=== PATIENT | female | born 1950 | race Two or more races ===

== ENCOUNTER 2023-01-06 17:41 | Inpatient (IN) | payer MEDICARE, OTHER ==
[~2023-01-06] VITALS: Ht 160 cm; Wt 79.3 kg
[2023-01-06 23:11] LABS: Basophils # (auto) 0.2 10 ^3/uL (0-0.2); Basophils % (auto) 1.4 % (0.0-2.0); Eosinophils # (auto) 0.4 10 ^3/uL (0-0.8); Eosinophils % (auto) 3.1 % (0.0-7.0); Hematocrit 45.1 % (36.0-46.0); Lymphocytes # (auto) 2.6 10 ^3/uL (0.4-5.4); Lymphocytes % (auto) 19.7 % (10.0-50.0); Mean Corpuscular Hemoglobin 29.5 pg (28.0-32.0); Mean Corpuscular Hgb Conc. 33.3 g/dL (32.0-36.0); Mean Corpuscular Volume 88.6 fL (80.0-100.0); Monocytes # (auto) 0.7 10 ^3/uL (0-1.3); Monocytes % (auto) 5.6 % (0.0-12.0); Neutrophils # (auto) 9.3 10 ^3/uL (1.6-8.6); Neutrophils % (auto) 70.2 % (37.0-80.0); Nucleated Red Blood Cells % 0.1 %; Red Blood Cells 5.09 10^6/uL (4.0-5.20); Red Cell Distribution Width 13.9 % (11.8-14.3); White Blood Cell 13.3 10^3/uL (4.4-10.8)
[2023-01-06] MEDS ORDERED: DEXTROSE (50%) 50ML SYRG IV PRN (23:15)
[2023-01-06] MEDS ORDERED: ONDANSETRON HCL 4 MG/2 ML VIAL IV PRN (23:15)
[2023-01-06] MEDS ORDERED: ACETAMINOPHEN 325 MG TAB PO PRN (23:15)
[2023-01-06] MEDS ORDERED: MORPHINE SULFATE INJ 2 MG/ml SYRG IV PRN ×2 (23:15)
[2023-01-06] MEDS ORDERED: NITROGLYCERIN 0.4 MG SL TAB SL PRN (23:15)
[2023-01-06] MEDS ORDERED: DOCUSATE SOD 100 MG CAP PO PRN (23:15)
[2023-01-06 23:25] LABS: Calcium 9.3 mg/dL (8.5-10.1); Potassium 3.5 mmol/L (3.5-5.1)
[2023-01-06 23:28] LABS: BUN/Creatinine Ratio 22.5 (10.0-20.0); Bilirubin, Total 0.7 mg/dL (0.2-1.0); INR 0.98 (0.9-1.15); Partial Thromboplastin Time 26.3 SEC (24.5-34.5); Total Protein 8.3 g/dL (6.4-8.2)
[2023-01-06] MEDS ORDERED: hydrALAZINE HCL 20 MG/ML VL IV PRN (23:30)
[2023-01-06] MEDS ORDERED: amLODIPine BESYLATE 5 MG TAB PO ONE (23:30)
[2023-01-07] VITALS: PULSE 86; RESP 16; O2SAT 94
[2023-01-07] MEDS: HYDROcodone-ACET 5/325MG TAB PO PRN ×2 (00:09→05:11)
[2023-01-07] MEDS: SODIUM CHLORIDE 0.9% 1,000 ML IV SCH ×2 (01:41→18:46)
[2023-01-07 03:22] LABS: Urine Bacteria MOD /hpf (None Seen); Urine Blood Negative /uL (Negative); Urine Specific Gravity 1.011 (1.001-1.035); Urine WBC 11 /hpf (0 - 5)
[2023-01-07 05:35] LABS: Basophils # (auto) 0.1 10 ^3/uL (0-0.2); Basophils % (auto) 0.6 % (0.0-2.0); Eosinophils # (auto) 0.3 10 ^3/uL (0-0.8); Eosinophils % (auto) 2.7 % (0.0-7.0); Hematocrit 40.1 % (36.0-46.0); Hemoglobin 13.4 g/dL (12.2-16.2); Lymphocytes # (auto) 2.1 10 ^3/uL (0.4-5.4); Lymphocytes % (auto) 17.7 % (10.0-50.0); Mean Corpuscular Hemoglobin 29.6 pg (28.0-32.0); Mean Corpuscular Hgb Conc. 33.5 g/dL (32.0-36.0); Mean Corpuscular Volume 88.5 fL (80.0-100.0); Monocytes # (auto) 0.8 10 ^3/uL (0-1.3); Monocytes % (auto) 6.5 % (0.0-12.0); Neutrophils # (auto) 8.5 10 ^3/uL (1.6-8.6); Neutrophils % (auto) 72.5 % (37.0-80.0); Nucleated Red Blood Cells % 0.1 %; Red Blood Cells 4.53 10^6/uL (4.0-5.20); Red Cell Distribution Width 13.8 % (11.8-14.3); White Blood Cell 11.7 10^3/uL (4.4-10.8)
[2023-01-07 05:50] LABS: Albumin 3.4 g/dL (3.4-5.0); Calcium 8.8 mg/dL (8.5-10.1); Potassium 3.3 mmol/L (3.5-5.1)
[2023-01-07 05:54] LABS: BUN/Creatinine Ratio 22.2 (10.0-20.0); Bilirubin, Total 0.7 mg/dL (0.2-1.0); Total Protein 7.3 g/dL (6.4-8.2)
[2023-01-07] MEDS: ACCU-CHEK COMFORT CURVE STRIP VI SCH ×4 (06:42→21:55)
[2023-01-07] MEDS: InsuLIN REG 1unit/0.01ml Soln (100units/ml) SC SCH ×3 (06:46→17:00)
[2023-01-07 08:10] VITALS: PULSE 71; RESP 15; O2SAT 93
[2023-01-07] MEDS: amLODIPine BESYLATE 5 MG TAB PO SCH (10:00)
[2023-01-07] MEDS: FAMOTIDINE (10MG/ML) 2ML VL IV SCH ×2 (10:00→22:02)
[2023-01-07] MEDS ORDERED: POTASSIUM EFFERVESENT TAB 25 MEQ PO ONE (13:30)
[2023-01-07 20:10] VITALS: PULSE 88; RESP 22; O2SAT 92
[2023-01-07] MEDS ORDERED: InsuLIN REG 1unit/0.01ml Soln (100units/ml) SC SCH (22:00)
[2023-01-07 23:08] VITALS: BP 139/76; PULSE 85; RESP 17; TEMP 98.6; O2SAT 93
[2023-01-08] MEDS ORDERED: MET25T PO (01:04)
[2023-01-08] MEDS ORDERED: METF-372 PO (01:04)
[2023-01-08] MEDS ORDERED: AMLO1TAB23 PO (01:04)
[2023-01-08] MEDS ORDERED: ATOR10TA52 PO (01:04)
[2023-01-08] MEDS ORDERED: PIOG1TAB36 PO (01:04)
[2023-01-08 05:00] VITALS: BP 117/72; PULSE 88; RESP 18; TEMP 98; O2SAT 94
[2023-01-08] MEDS: ACCU-CHEK COMFORT CURVE STRIP VI SCH ×3 (06:31→17:00)
[2023-01-08] MEDS: InsuLIN REG 1unit/0.01ml Soln (100units/ml) SC SCH ×3 (06:31→17:00)
[2023-01-08 07:52] LABS: Basophils # (auto) 0.1 10 ^3/uL (0-0.2); Basophils % (auto) 0.8 % (0.0-2.0); Eosinophils # (auto) 0.3 10 ^3/uL (0-0.8); Eosinophils % (auto) 3.5 % (0.0-7.0); Hematocrit 41.9 % (36.0-46.0); Hemoglobin 13.9 g/dL (12.2-16.2); Lymphocytes # (auto) 1.6 10 ^3/uL (0.4-5.4); Lymphocytes % (auto) 16.4 % (10.0-50.0); Mean Corpuscular Hemoglobin 29.6 pg (28.0-32.0); Mean Corpuscular Hgb Conc. 33.1 g/dL (32.0-36.0); Mean Corpuscular Volume 89.4 fL (80.0-100.0); Monocytes # (auto) 0.6 10 ^3/uL (0-1.3); Monocytes % (auto) 6.6 % (0.0-12.0); Neutrophils # (auto) 7.1 10 ^3/uL (1.6-8.6); Neutrophils % (auto) 72.7 % (37.0-80.0); Nucleated Red Blood Cells % 0.1 %; Red Blood Cells 4.69 10^6/uL (4.0-5.20); Red Cell Distribution Width 13.7 % (11.8-14.3); White Blood Cell 9.7 10^3/uL (4.4-10.8)
[2023-01-08 08:00] LABS: Calcium 8.6 mg/dL (8.5-10.1); Potassium 3.4 mmol/L (3.5-5.1)
[2023-01-08] MEDS ORDERED: POTASSIUM EFFERVESENT TAB 25 MEQ PO ONE (08:15)
[2023-01-08 08:30] VITALS: PULSE 120; PULSE 84; RESP 16; O2SAT 94
[2023-01-08] MEDS: SODIUM CHLORIDE 0.9% 1,000 ML IV SCH (08:35)
[2023-01-08 09:00] VITALS: BP 127/76; PULSE 81; RESP 18; TEMP 97.8; O2SAT 97
[2023-01-08] MEDS ORDERED: cefTRIAXone 1GM/50ML D5W 50 ML IV SCH (09:00)
[2023-01-08] MEDS: FAMOTIDINE (10MG/ML) 2ML VL IV SCH (09:20)
[2023-01-08] MEDS: amLODIPine BESYLATE 5 MG TAB PO SCH (09:28)
[2023-01-08] MEDS ORDERED: METOPROLOL TARTRATE 25 MG TAB PO SCH (10:00)
[2023-01-08] MEDS ORDERED: CEPH250C PO (11:57)
[2023-01-08] MEDS ORDERED: HYDR-4902 PO (11:57)
[2023-01-08 13:00] VITALS: BP 113/74; PULSE 84; RESP 16; TEMP 97.7; O2SAT 94
[2023-01-08 17:00] VITALS: BP 140/81; PULSE 75; RESP 18; TEMP 98.2; O2SAT 96
[2023-01-08 18:30] VITALS: PULSE 120; RESP 16; O2SAT 94
== END 2023-01-08 16:00 | disposition home or self-care (01) | DRG 872 ==
LOC: ER 17:41 → TELE 23:14 → TELE-WESTW 01-07 22:30
PROVIDERS: ADMIT Internal Medicine; ATTEND Student in an Organized Health Care Education/Training Program
DX: A41.9 Sepsis, unspecified organism (principal); N39.0 Urinary tract infection, site not specified; S13.4XXA Sprain of ligaments of cervical spine, initial encounter; S33.5XXA Sprain of ligaments of lumbar spine, initial encounter; I48.91 Unspecified atrial fibrillation; E11.9 Type 2 diabetes mellitus without complications; I10 Essential (primary) hypertension; W18.39XA Other fall on same level, initial encounter; E78.5 Hyperlipidemia, unspecified; S62.606A Fracture of unspecified phalanx of right little finger, initial encounter for closed fracture; M48.02 Spinal stenosis, cervical region; M54.9 Dorsalgia, unspecified; Z82.49 Family history of ischemic heart disease and other diseases of the circulatory system; Y93.89 Activity, other specified; Y92.89 Other specified places as the place of occurrence of the external cause; Y99.8 Other external cause status
CPT/HCPCS: 36415; 70450; 71045; 72125; 72131; 72170; 73130; 80048; 80053; 81001; 82962; 85025; 85610; 85730; 87086; G0378; J0696; J1815; J3490

== ENCOUNTER 2024-01-24 19:44 | Emergency (ER) | payer MEDICARE, OTHER ==
[~2024-01-24] VITALS: Ht 152.4 cm; Wt 69.5 kg
[~2024-01-24 19:44] MED LIST: AMLO1TAB23 PO; ATOR10TA52 PO; CEPH250C PO; MET25T PO; METF-372 PO; PIOG1TAB36 PO
[2024-01-24 20:19] LABS: Basophils # (auto) 0.1 10 ^3/uL (0-0.2); Basophils % (auto) 0.8 % (0.0-2.0); Eosinophils # (auto) 0.4 10 ^3/uL (0-0.8); Eosinophils % (auto) 2.5 % (0.0-7.0); Hematocrit 45.3 % (36.0-46.0); Hemoglobin 14.5 g/dL (12.2-16.2); Lymphocytes # (auto) 2.7 10 ^3/uL (0.4-5.4); Lymphocytes % (auto) 18.3 % (10.0-50.0); Mean Corpuscular Hemoglobin 29.2 pg (28.0-32.0); Mean Corpuscular Hgb Conc. 32.1 g/dL (32.0-36.0); Mean Corpuscular Volume 90.8 fL (80.0-100.0); Monocytes # (auto) 0.9 10 ^3/uL (0-1.3); Monocytes % (auto) 5.9 % (0.0-12.0); Neutrophils # (auto) 10.6 10 ^3/uL (1.6-8.6); Neutrophils % (auto) 72.5 % (37.0-80.0); Platelet Count (auto) 308 10^3/uL (140-450); Red Blood Cells 4.99 10^6/uL (4.0-5.20); White Blood Cell 14.6 10^3/uL (4.4-10.8)
[2024-01-24 20:32] LABS: Chloride 107 mmol/L (98-107); Potassium 3.8 mmol/L (3.5-5.1); Sodium 140 mmol/L (136-145)
[2024-01-24 20:33] LABS: Anion Gap 9 (5-15); Calcium 10.5 mg/dL (8.7-10.4); Carbon Dioxide 24 mmol/L (20-30)
[2024-01-24 20:38] LABS: BUN/Creatinine Ratio 12.5 (10.0-20.0); Blood Urea Nitrogen 10 mg/dL (9-23); Glucose 195 mg/dL (74-106)
[2024-01-24 23:35] LABS: Urine Bacteria None Seen /hpf (None Seen)
[2024-01-25 00:17] LABS: Urine Blood Negative /uL (Negative); Urine Clarity Clear (Clear); Urine Color Light-Yellow (Yellow); Urine Protein, UAD Negative (Negative); Urine Specific Gravity 1.032 (1.001-1.035); Urine Urobilinogen Normal (Negative); Urine WBC 1 /hpf (0 - 5)
[2024-01-25 01:54] LABS: COVID19 ANTIGEN SOFIA FIA NEGATIVE (NEGATIVE); Rapid Influenza A Negative (Negative); Rapid Influenza B Negative (Negative)
[2024-01-25 02:42] VITALS: BP 152/83; TEMP 98.4
[2024-01-25 02:43] VITALS: PULSE 92; RESP 20; O2SAT 97
== END 2024-01-25 02:50 | disposition home or self-care (01) ==
LOC: ER 19:44
DX: R53.1 Weakness (principal); R51.9 Headache, unspecified; R42 Dizziness and giddiness; E11.9 Type 2 diabetes mellitus without complications; E78.5 Hyperlipidemia, unspecified; I10 Essential (primary) hypertension; D72.829 Elevated white blood cell count, unspecified; Z20.822 Contact with and (suspected) exposure to COVID-19
CPT/HCPCS: 36415; 70450; 80048; 81001; 85025; 87426; 87804

== ENCOUNTER 2025-01-15 18:17 | Inpatient (IN) | payer MEDICARE, OTHER ==
[~2025-01-15] VITALS: Ht 160 cm; Wt 72.0 kg
[2025-01-15] MEDS: SODIUM CHLORIDE 0.9% 500 ML IV ONE (18:45)
[2025-01-15] MEDS: SODIUM CHLORIDE 0.9% 1,000 ML IV ONE (18:45)
--- NOTE | 2025-01-15 18:54 | ED.PDOC ---
History of Present Illness HPI Comments 74-year-old female who came to ER for body pains. Patient has history of hypertension, diabetes and dyslipidemia. Has been complaining of generalized body pains for the past 3 days. Notable fever, headaches, neck pain, swelling of her right wrist, and upper abdominal pain as well. Denies any urinary sympto ms. REVIEW OF SYSTEMS: (+) fever, no chills, or fatigue (+) body pains HEENT: No sore throat, no earache, no congestion, no neck pain. Cardiac: No chest pain. No palpitations. Lungs: No shortness of breath, no cough. GI: No nausea, no vomiting, no diarrhea, no constipation, (+) abdominal pain : No dysuria, frequency, or urgency. No hematuria. Musculoskeletal: (+) joint pain , no joint swelling, no extremity edema. Skin: No rash, no itching. Neuro: No headache, no dizziness, no weakness Physical exam General: Awake, alert and oriented. No acute distress. Skin: Skin in warm, dry and intact. Appropriate color for ethnicity. Nailbeds pink with no cyanosis. HEENT: The head is normocephalic and atraumatic. Conjunctivae are clear without exudates or hemorrhage. Sclera is non-icteric. EOM are intact. No signs of nystagmus. Eyelids are normal in appearance without swelling or lesions. Oral mucosa is pink and moist Neck: The neck is supple with normal range of motion. No JVD. Cardiac: Heart rate and rhythm are normal. No murmurs, gallops, or rubs are auscultated. Respiratory: No signs of respiratory distress. Lung sounds are clear in all lobes bilaterally without rales, rhonchi, or wheezes. Abdominal: Abdomen is soft, non-tender without distention. Bowel sounds are present and normoactive in all four quadrants. Extremities: Upper and lower extremities are atraumatic in appearance without deformity or edema. Neurological: The patient is awake, alert and oriented to person, place, and time with normal speech. Speech is clear. There is no facial asymmetry. Psychiatric: Appropriate mood and affect. Good judgement and insight. No visual or auditory hallucinations. Chief Complaint: Body Pain Time Seen by MD: 18:53 Primary Care Provider: PASCUAL Allergies: Coded Allergies: NO KNOWN ALLERGIES (Unverified , 06/18/19) Home Meds Active Scripts Cephalexin (KEFLEX CAPSULE) 250 Mg Cp, 1 CAP PO QID, #28 CAP Prov:HENRIK MOLINA MD 01/08/23 Reported Medications Metformin Hydrochloride (Metformin Hcl) 1,000 Mg Tab, 1 TAB PO BID 01/08/23 Amlodipine Besylate (Amlodipine Besylate) 10 Mg Tab, 1 TAB PO DAILY 01/08/23 Metoprolol Tartrate (Lopressor) 25 Mg Tb, 1 TAB PO BID 01/08/23 Atorvastatin Calcium (ATORVASTATIN CALCIUM) 10 Mg Tab, 1 TAB PO 01/08/23 Pioglitazone Hydrochloride (PIOGLITAZONE HCL) 15 Mg Tab, 1 TAB PO DAILY 01/08/23 Mode of Arrival: Ambulatory Past Medical History PAST MEDICAL HISTORY: DM, High Lipids, HTN Surgical History: MYSQL DBA History: No Pertinent MYSQL DBA History Family History Family History: Family hx of Cancer Social History Smoker: Non-Smoker Alcohol: Denies ETOH Use Drugs: Denies Drug Use Lives In: Home Was a procedure done? Was a procedure done?: No EKG EKG : Pulse Rate (adult): 103 [place]: LAD Cardiac Rhythm: ST Comments No STEMI Differential Dx Considerations may include: Differential diagnoses considered include but are not limited to sepsis, CVA, ACS, PE, stroke, ICH, adrenal insufficiency, viral syndrome, thyroid storm, myxedema coma , DKA, HHS, hypoglycemia, anemia, GI bleeding, renal failure, dehydration, hepatic failure, electrolyte imbalance, carbon monoxide poisoning, malignancy, UTI, other. X-Ray, Labs, Meds, VS Vital Signs Date Time Temp Pulse Resp B/P (MAP) Pulse Ox O2 Delivery O2 Flow Rate FiO2 01/15/25 21:00 Room Air* 0 21 01/15/25 21:00 97.5 88 17 152/75 (100) 99 97.5 01/15/25 18:54 103 01/15/25 18:38 102 01/15/25 18:19 100.1 123 20 166/109 100 100.1 Lab Test 01/15/25 21:10 01/15/25 20:20 01/15/25 20:18 01/15/25 19:54 Range/Units Lactic Acid Level 1.5 0.4-2.0 mmol/L Influenza Type A Antigen Negative Negative Influenza Type B Antigen Negative Negative SARS-CoV-2 Antigen (Rapid) Negative NEGATIVE Urine Color Colorless Yellow Urine Clarity Clear Clear Urine pH 5.5 5.0-9.0 Urine Specific [place] 1.009 1.001-1.035 Urine Protein Negative Negative Urine Ketones Trace Negative Urine Blood Negative Negative /uL Urine Nitrite Negative Negative Urine Bilirubin Negative Negative Urine Urobilinogen Normal Negative mg/dL Urine Leukocyte Esterase 1+ Negative /uL Urine RBC 1 0 - 4 /hpf Urine Microscopic WBC 4 0-5 /HPF Urine Squamous Epithelial Cells Few <5 /hpf Urine Bacteria Many H None Seen /hpf Urine Glucose Normal Normal mg/dL Troponin I High Sensitivity 3 L </=34 ng/L Test 01/15/25 19:00 Range/Units White Blood Count 18.3 H 4.4-10.8 10^3/uL Red Blood Count 4.72 4.0-5.20 10^6/uL Hemoglobin 13.9 12.2-16.2 g/dL Hematocrit 40.8 36.0-46.0 % Mean Corpuscular Volume 86.3 80.0-100.0 fL Mean Corpuscular Hemoglobin 29.4 28.0-32.0 pg Mean Corpuscular Hemoglobin Concent 34.1 32.0-36.0 g/dL Red Cell Distribution Width 13.1 11.8-14.3 % Platelet Count 438 140-450 10^3/uL Mean Platelet Volume 8.1 6.9-10.8 fL Neutrophils (%) (Auto) 76.1 37.0-80.0 % Lymphocytes (%) (Auto) 14.1 10.0-50.0 % Monocytes (%) (Auto) 7.0 0.0-12.0 % Eosinophils (%) (Auto) 1.6 0.0-7.0 % Basophils (%) (Auto) 1.2 0.0-2.0 % Neutrophils # (Auto) 13.9 H 1.6-8.6 10 ^3/uL Lymphocytes # (Auto) 2.6 0.4-5.4 10 ^3/uL Monocytes # (Auto) 1.3 0-1.3 10 ^3/uL Eosinophils # (Auto) 0.3 0-0.8 10 ^3/uL Basophils # (Auto) 0.2 0-0.2 10 ^3/uL Nucleated Red Blood Cells 0.0 % Sodium Level 137 136-145 mmol/L Potassium Level 3.7 3.5-5.1 mmol/L Chloride Level 105 98-107 mmol/L Carbon Dioxide Level 18 L 20-31 mmol/L Anion Gap 14 5-15 Blood Urea Nitrogen 12 9-23 mg/dL Creatinine 0.69 0.550-1.02 mg/dL Glomerular Filtration Rate Calc 92 >90 mL/min BUN/Creatinine Ratio 17.4 10.0-20.0 Serum Glucose 193 H 74-106 mg/dL Lactic Acid Level 2.5 *H 0.4-2.0 mmol/L Calcium Level 9.7 8.7-10.4 mg/dL Total Bilirubin 0.9 0.2-1.0 mg/dL Aspartate Amino Transferase (AST) 11 L 13-40 U/L Alanine Aminotransferase (ALT) 11 7-40 U/L Alkaline Phosphatase 93 46-116 U/L Total Protein 7.5 5.7-8.2 g/dL Albumin 4.2 3.2-4.8 g/dL Current Medications Medications (Trade) Dose Ordered Sig/Jesse Route Start Time Stop Time Status Last Admin Sodium Chloride 1,000 ml @ 130 mls/hr Q7H42M ONCE IV 01/15/25 18:45 01/16/25 02:26 01/15/25 18:45 Sodium Chloride 500 ml @ 500 mls/hr Q1H ONCE IV 01/15/25 18:45 01/15/25 19:44 DC 01/15/25 18:45 Acetaminophen (Tylenol Tablet) 650 mg ONCE ONCE PO 01/15/25 19:00 01/15/25 19:01 DC 01/15/25 19:31 Ceftriaxone Sodium 50 ml @ 100 mls/hr ONCE ONCE IV 01/15/25 20:15 01/15/25 20:52 DC 01/15/25 21:12 Sodium Chloride 1,800 ml @ 1,800 mls/hr Q1H ONCE IV 01/15/25 20:15 01/15/25 21:14 DC 01/15/25 21:05 Vancomycin HCl 250 ml @ 250 mls/hr ONCE ONCE IV 01/15/25 21:00 01/15/25 21:59 DC 01/15/25 21:43 EXAM: XY CHEST XRAY 1 VIEW CLINICAL HISTORY: Suspected Sepsis TECHNIQUE: Single AP view of the chest WID: COMPARISON: XY CHEST PORTABLE on DOS: 01/08/23 FINDINGS: Lines and tubes: None Chest: The heart size and pulmonary vasculature is within normal limits. No pleural effusion, pneumothorax, or consolidation. Linear bibasilar scarring or atelectasis. The osseous structures are grossly intact. Multilevel thoracic spondylosis. IMPRESSION: No acute cardiopulmonary abnormality. EDURE(s): RWRI - R WRIST 3+ VIEW XRAY REASON: pain swelling ORDER NUMBER(s): [id number], ACCESSION NUMBER(s): [id number] CLINICAL HISTORY: pain swelling TECHNIQUE: 3 views of the right wrist were obtained. WID: COMPARISON: XY R HAND 3 VIEW XRAY on DOS: 01/06/23 FINDINGS: Bony demineralization. Alignment is maintained aside from ulnar negative variance. No acute fracture. Mild 1st CMC joint osteoarthritis. Tiny radiopaque densities project adjacent to the distal carpal row at the radial aspect. Soft tissue swelling about the distal right forearm and wrist. IMPRESSION: Bony demineralization. No definite acute fracture. Tiny radiopaque densities adjacent to the distal carpal row at the radial aspect which could reflect foreign bodies. Mild 1st CMC joint osteoarthritis. Soft tissue swelling about the distal right forearm and wrist. Time of 1ST Reevaluation: 18:50 Reevaluation 1ST: Unchanged Patient Education/Counseling: Need For Follow Up Family Education/Counseling: Need For Follow Up SEPSIS Sepsis Screen Date sepsis recognized/suspect: Jan 15, 2025 Time Sepsis recognized/suspect: 1820 Recent Procedure: No On Antibiotic Therapy: No Respiratory Rate >20: No Heart Rate >90: Yes Temp<36 C (96.8 F) or >38.3 C: No SBP <90 or MAP <65 mmHG: No New Acute Mental Status Change: No Is the patient on CPAP, BIPAP,: No Physician Orders Sodium Chloride 0.9% (01/15/25 18:45) Vital Signs Q1HR (01/15/25 18:35) Saline Lock (01/15/25 18:35) Supervisor Money Room (01/15/25 ) Rectal/Core Temps Only (01/15/25 18:35) Notify Md If Abnormal Vs (01/15/25 18:35) Blood Culture (01/15/25 18:35) Chest Xray 1 View (01/15/25 18:35) Electrocardigram (01/15/25 18:44) R Wrist 3+ View Xray (01/15/25 18:49) Vital Signs Date Time Temp Pulse Resp B/P (MAP) Pulse Ox O2 Delivery O2 Flow Rate FiO2 01/15/25 21:00 Room Air* 0 21 01/15/25 21:00 97.5 88 17 152/75 (100) 99 97.5 01/15/25 18:54 103 01/15/25 18:38 102 01/15/25 18:19 100.1 123 20 166/109 100 100.1 Laboratory Tests Test 01/15/25 19:00 01/15/25 21:10 Lactic Acid Level 2.5 mmol/L (0.4-2.0) *H 1.5 mmol/L (0.4-2.0) White Blood Count 18.3 10^3/uL (4.4-10.8) H Medications Medications Dose Ordered Sig/Jesse Route Start Time Stop Time Status Last Admin Dose Admin Acetaminophen 650 mg ONCE ONCE PO 01/15/25 19:00 01/15/25 19:01 DC 01/15/25 19:31 Ceftriaxone Sodium 50 ml @ 100 mls/hr ONCE ONCE IV 01/15/25 20:15 01/15/25 20:52 DC 01/15/25 21:12 Sodium Chloride 500 ml @ 500 mls/hr Q1H ONCE IV 01/15/25 18:45 01/15/25 19:44 DC 01/15/25 18:45 Sodium Chloride 1,000 ml @ 130 mls/hr Q7H42M ONCE IV 01/15/25 18:45 01/16/25 02:26 01/15/25 18:45 Sodium Chloride 1,800 ml @ 1,800 mls/hr Q1H ONCE IV 01/15/25 20:15 01/15/25 21:14 DC 01/15/25 21:05 Vancomycin HCl 250 ml @ 250 mls/hr ONCE ONCE IV 01/15/25 21:00 01/15/25 21:59 DC 01/15/25 21:43 Departure 1 Departure Time of Disposition: 23:54 Impression: Primary Impression: Suspected sepsis Disposition: 09 ADMITTED INPATIENT Condition: Stable Comments 74-year-old female who presented with generalized body aches, headache. Found to have suspected sepsis. Antibiotics and IV fluids initiated in the ED. Patient admitted to hospitalist service for further treatment, evaluation and monitoring. Extensive evaluation was performed in attempt to identify or rule out: (See differential diagnosis section) The following tests were ordered, and results were reviewed by me and discussed with patient: (See diagnostic results section) The following test were independently interpreted by me: EKG Additional information was gathered from interviewing the following independent historians: Patient's family at bedside Discussion of management or test interpretation with external physician/other qualified health medicare biller: N/A Addressed]an acute or chronic illness that poses a threat to life or bodily function: Suspected sepsis Decision regarding hospitalization or escalation of hospital level of care: Risk and benefits of admission for further treatment of patient's condition was considered. Due to patient's current clinical condition, high risk of decline and poor outcome if discharged and need for further inpatient management and monitoring, patient will be admitted to the hospital. Discussed with patient. Critical Care Note Critical Care Time?: No Stability Stability form required: No Heart Score Heart Score: Heart Score Response (Comments) Value History Slightly Suspicious 0 EKG Repolarization Disturb 1 Age >65 2 Risk Factors >3 or Hx ASHD 2 Troponin Normal limit 0 Total 5 I personally scribed for LESTER MARTINEZ MD (Re[employer]enant) on 01/15/25 at 18:54. Electronically submitted by Kit De La Rosa (Signature). I personally scribed for LESTER MARTINEZ MD (Re[employer]enant) on 01/15/25 at 21:20. Electronically submitted by Kit De La Rosa (Signature). LESTER MARTINEZ MD Jan 15, 2025 18:54
[2025-01-15 19:26] LABS: Hematocrit 40.8 % (36.0-46.0); Hemoglobin 13.9 g/dL (12.2-16.2); Mean Corpuscular Hemoglobin 29.4 pg (28.0-32.0); Mean Corpuscular Volume 86.3 fL (80.0-100.0); Nucleated Red Blood Cells % 0.0 %
[2025-01-15] MEDS: ACETAMINOPHEN 325 MG TAB PO ONE (19:31)
[2025-01-15 19:35] LABS: Alanine Aminotransferase 11 U/L (7-40); Albumin 4.2 g/dL (3.2-4.8); Alkaline Phosphatase 93 U/L (46-116); Anion Gap 14 (5-15); BUN/Creatinine Ratio 17.4 (10.0-20.0); Blood Urea Nitrogen 12 mg/dL (9-23); Calcium 9.7 mg/dL (8.7-10.4); Chloride 105 mmol/L (98-107); Potassium 3.7 mmol/L (3.5-5.1); Sodium 137 mmol/L (136-145); Total Protein 7.5 g/dL (5.7-8.2)
[2025-01-15 19:36] LABS: Bilirubin, Total 0.9 mg/dL (0.2-1.0)
[2025-01-15 19:42] LABS: Carbon Dioxide 18 mmol/L (20-31); Glucose 193 mg/dL (74-106)
[2025-01-15 19:47] LABS: Lactic Acid w/Reflex 2.5 mmol/L (0.4-2.0)
[2025-01-15] MEDS ORDERED: VANCOMYCIN 1GM/200ML PM 200 ML IV ONE (20:15)
[2025-01-15] MEDS: SODIUM CHLORIDE 0.9% 1,800 ML IV ONE (21:05)
--- NOTE | 2025-01-15 21:10 | DVH ---
CLINICAL HISTORY: pain swelling TECHNIQUE: 3 views of the right wrist were obtained. WID: COMPARISON: XY R HAND 3 VIEW XRAY on DOS: 01/06/23 FINDINGS: Bony demineralization. Alignment is maintained aside from ulnar negative variance. No acute fracture . Mild 1st CMC joint osteoarthritis. Tiny radiopaque densities project adjacent to the distal carpal row at the radial aspect. Soft tissue swelling about the distal right forearm and wrist. IMPRESSION: Bony demineralization. No definite acute fracture. Tiny radiopaque densities adjacent to the distal carpal row at the radial aspect which could reflect foreign bodies. Mild 1st CMC joint osteoarthritis. Soft tissue swelling about the distal right forearm and wrist.
--- NOTE | 2025-01-15 21:11 | DVH ---
EXAM: XY CHEST XRAY 1 VIEW CLINICAL HISTORY: Suspected Sepsis TECHNIQUE: Single AP view of the chest WID: COMPARISON: XY CHEST PORTABLE on DOS: 01/08/23 FINDINGS: Lines and tubes: None Chest: The heart size and pulmonary vasculature is within normal limits. No pleural effusion, pneumothorax, or consolidation. Linear bibasilar scarring or atelectasis. The osseous structures are grossly intact. Multilevel thoracic spondylosis. IMPRESSION: No acute cardiopulmonary abnormality.
[2025-01-15] MEDS: cefTRIAXone 1GM/50ML D5W 50 ML IV ONE (21:12)
[2025-01-15 21:22] LABS: Urine Protein, UAD Negative (Negative)
[2025-01-15] MEDS: VANCOMYCIN 1GM/250ML KIT 250 ML IV ONE (21:43)
[2025-01-15 22:51] LABS: COVID19 ANTIGEN SOFIA FIA NEGATIVE (NEGATIVE)
[2025-01-15] MEDS ORDERED: ONDANSETRON HCL 4 MG/2 ML VIAL IV PRN (23:15)
--- NOTE | 2025-01-15 23:41 | DVHHPRES ---
History of Present Illness Resident Creating Document: TEJ ODELL RESIDENT History of Present Illness 74-year-old female with history of diabetes mellitus, hypertension and hypercholesterolemia presents to the ER with history of right wrist swelling and pain followed by fall. The patient is a poor historian. After the fall she had a fracture on right little finger, also injured her right wrist. Since last 2 days she noticed increasing pain and swelling over the wrist. She developed bilateral headache, diarrhea, fever, left-sided chest pain for same duration. The pain has no relation with breathing or movement. She has a cough for 2 weeks with brown sputum, not mixed with blood. She also reports having a periumbilical pain and diarrhea since last 3 days. She has tingling and itching sensation over her right leg . Past medical history: Hypertension, hyperlipidemia, diabetes mellitus Past surgical history: None Home medicines: Amlodipine, metoprolol, lisinopril, gabapentin, triamcinolone ointment for itchy legs, Smoking: Never Alcohol: Never Drugs: Never PCP: Never Allergies: None Code status: Full code Review of Systems Review of Systems Patient was seen and examined at the bedside. She complains of right wrist swelling and pain, headache diarrhea, fever, the pain, abdominal pain. No other complaints reported. Rest of the ROS is negative Allergies: Coded Allergies: NO KNOWN ALLERGIES (Unverified , 06/18/19) Medications Current Medications Medications Dose Ordered Sig/Jesse Route Start Time Stop Time Status Last Admin Dose Admin Ondansetron HCl 4 mg Q4HP PRN IV 01/15/25 23:15 Enoxaparin Sodium 30 mg DAILY SC 01/16/25 10:00 Acetaminophen 650 mg Q6HP PRN PO 01/15/25 23:15 Exam Vital Signs Vital Signs Date Time Temp Pulse Resp B/P (MAP) Pulse Ox O2 Delivery O2 Flow Rate FiO2 01/15/25 23:15 99.0 88 16 161/78 (105) 99 99.0 01/15/25 21:00 Room Air* 0 21 Exam Pt is lying on bed General Appearance: Alert, Oriented X3, Cooperative, Mild distress HEENT: Atraumatic, Mucous membranes moist/pink Respiratory: Clear to auscultation, Normal air movement, No added sounds Cardiovascular: Regular rate, Normal S1, Normal S2, No murmurs Abdominal/ : Active bowel sounds, Soft, no distention, periumbilical mild tenderness Extremities: No edema, Normal pulses, right wrist warm, tenderness and swelling present Skin: No Significant rash, except past surgical scars Neuro: Normal speech, sensorimotor deficits none Psych/Mental Status: Mental status NL, Mood NL Nurse was there as pressure welder during examination Labs/Xrays Labs Test 01/15/25 21:10 01/15/25 20:20 01/15/25 20:18 01/15/25 19:54 Range/Units Lactic Acid Level 1.5 0.4-2.0 mmol/L Influenza Type A Antigen Negative Negative Influenza Type B Antigen Negative Negative SARS-CoV-2 Antigen (Rapid) Negative NEGATIVE Urine Color Colorless Yellow Urine Clarity Clear Clear Urine pH 5.5 5.0-9.0 Urine Specific [place] 1.009 1.001-1.035 Urine Protein Negative Negative Urine Ketones Trace Negative Urine Blood Negative Negative /uL Urine Nitrite Negative Negative Urine Bilirubin Negative Negative Urine Urobilinogen Normal Negative mg/dL Urine Leukocyte Esterase 1+ Negative /uL Urine RBC 1 0 - 4 /hpf Urine Microscopic WBC 4 0-5 /HPF Urine Squamous Epithelial Cells Few <5 /hpf Urine Bacteria Many H None Seen /hpf Urine Glucose Normal Normal mg/dL Troponin I High Sensitivity 3 L </=34 ng/L Test 01/15/25 19:00 Range/Units White Blood Count 18.3 H 4.4-10.8 10^3/uL Red Blood Count 4.72 4.0-5.20 10^6/uL Hemoglobin 13.9 12.2-16.2 g/dL Hematocrit 40.8 36.0-46.0 % Mean Corpuscular Volume 86.3 80.0-100.0 fL Mean Corpuscular Hemoglobin 29.4 28.0-32.0 pg Mean Corpuscular Hemoglobin Concent 34.1 32.0-36.0 g/dL Red Cell Distribution Width 13.1 11.8-14.3 % Platelet Count 438 140-450 10^3/uL Mean Platelet Volume 8.1 6.9-10.8 fL Neutrophils (%) (Auto) 76.1 37.0-80.0 % Lymphocytes (%) (Auto) 14.1 10.0-50.0 % Monocytes (%) (Auto) 7.0 0.0-12.0 % Eosinophils (%) (Auto) 1.6 0.0-7.0 % Basophils (%) (Auto) 1.2 0.0-2.0 % Neutrophils # (Auto) 13.9 H 1.6-8.6 10 ^3/uL Lymphocytes # (Auto) 2.6 0.4-5.4 10 ^3/uL Monocytes # (Auto) 1.3 0-1.3 10 ^3/uL Eosinophils # (Auto) 0.3 0-0.8 10 ^3/uL Basophils # (Auto) 0.2 0-0.2 10 ^3/uL Nucleated Red Blood Cells 0.0 % Sodium Level 137 136-145 mmol/L Potassium Level 3.7 3.5-5.1 mmol/L Chloride Level 105 98-107 mmol/L Carbon Dioxide Level 18 L 20-31 mmol/L Anion Gap 14 5-15 Blood Urea Nitrogen 12 9-23 mg/dL Creatinine 0.69 0.550-1.02 mg/dL Glomerular Filtration Rate Calc 92 >90 mL/min BUN/Creatinine Ratio 17.4 10.0-20.0 Serum Glucose 193 H 74-106 mg/dL Calcium Level 9.7 8.7-10.4 mg/dL Total Bilirubin 0.9 0.2-1.0 mg/dL Aspartate Amino Transferase (AST) 11 L 13-40 U/L Alanine Aminotransferase (ALT) 11 7-40 U/L Alkaline Phosphatase 93 46-116 U/L Total Protein 7.5 5.7-8.2 g/dL Albumin 4.2 3.2-4.8 g/dL SEPSIS Sepsis Screen Date sepsis recognized/suspect: Jan 15, 2025 Time Sepsis recognized/suspect: 2099 Recent Procedure: No On Antibiotic Therapy: No Respiratory Rate >20: No Heart Rate >90: No Temp<36 C (96.8 F) or >38.3 C: No SBP <90 or MAP <65 mmHG: No New Acute Mental Status Change: No Is the patient on CPAP, BIPAP,: No Physician Orders Sodium Chloride 0.9% (01/15/25 18:45) Vital Signs Q1HR (01/15/25 18:35) Saline Lock (01/15/25 18:35) Operations And Intelligence Assistant (01/15/25 ) Rectal/Core Temps Only (01/15/25 18:35) Notify Md If Abnormal Vs (01/15/25 18:35) Blood Culture (01/15/25 18:35) Chest Xray 1 View (01/15/25 18:35) Electrocardigram (01/15/25 18:44) R Wrist 3+ View Xray (01/15/25 18:49) Allergies (01/15/25 23:05) Code Status (01/15/25 23:05) Oxygen Per Hour (01/15/25 23:05) Ondansetron Hcl (Zofran) (01/15/25 23:15) Complete Blood Count (01/16/25 04:00) Comprehensive Metabolic Panel (01/16/25 04:00) Cardiac Diet-2gna,Lofat,Lochol (01/16/25 Breakfast) Enoxaparin Sodium (Lovenox) (01/16/25 10:00) Acetaminophen Tablet (Tylenol Tablet) (01/15/25 23:15) Oxygen By Nasal Cannula (01/15/25 23:05) Stat Ekg For Chest Pain (01/15/25 23:05) Notify Of Changes From Base (01/15/25 23:05) District Adviser For 24 Hours (01/15/25 23:05) Emergency Dysrhythmia Protocol (01/15/25 23:05) Rhythm Strips Once Every Shift (01/15/25 23:05) Admit (01/15/25 23:40) Vital Signs Date Time Temp Pulse Resp B/P (MAP) Pulse Ox O2 Delivery O2 Flow Rate FiO2 01/15/25 23:15 99.0 88 16 161/78 (105) 99 99.0 01/15/25 21:00 Room Air* 0 21 01/15/25 21:00 97.5 88 17 152/75 (100) 99 97.5 01/15/25 18:54 103 01/15/25 18:38 102 01/15/25 18:19 100.1 123 20 166/109 100 100.1 Laboratory Tests Test 01/15/25 19:00 01/15/25 21:10 Lactic Acid Level 2.5 mmol/L (0.4-2.0) *H 1.5 mmol/L (0.4-2.0) White Blood Count 18.3 10^3/uL (4.4-10.8) H Medications Medications Dose Ordered Sig/Jesse Route Start Time Stop Time Status Last Admin Dose Admin Acetaminophen 650 mg ONCE ONCE PO 01/15/25 19:00 01/15/25 19:01 DC 01/15/25 19:31 650 MG Ceftriaxone Sodium 50 ml @ 100 mls/hr ONCE ONCE IV 01/15/25 20:15 01/15/25 20:52 DC 01/15/25 21:12 100 MLS/HR Sodium Chloride 500 ml @ 500 mls/hr Q1H ONCE IV 01/15/25 18:45 01/15/25 19:44 DC 01/15/25 18:45 500 MLS/HR Sodium Chloride 1,000 ml @ 130 mls/hr Q7H42M ONCE IV 01/15/25 18:45 01/16/25 02:26 01/15/25 18:45 130 MLS/HR Sodium Chloride 1,800 ml @ 1,800 mls/hr Q1H ONCE IV 01/15/25 20:15 01/15/25 21:14 DC 01/15/25 21:05 1,800 MLS/HR Vancomycin HCl 250 ml @ 250 mls/hr ONCE ONCE IV 01/15/25 21:00 01/15/25 21:59 DC 01/15/25 21:43 250 MLS/HR Assessment/Plan Assessment/Plan Sepsis meeting SIRS criteria Sepsis due to right wrist cellulitis Sepsis due to UTI likely cystitis Heart rate 91, Leukocytosis 18.5, lactic acid 2.5 urinalysis: many bacteria leukocyte esterase 1+ microscopic WBC 4 CXR: No acute cardiopulmonary abnormality Wrist x-ray: Bony demineralization.No definite acute fracture.Tiny radiopaque densities adjacent to the distal carpal row at the radial aspect which could reflect foreign bodies.Mild 1st CMC joint osteoarthritis.Soft tissue swelling about the distal right forearm and wrist. -ceftriaxone -vancomycin -[place] and Tylenol p.r.n. for pain Uncontrolled hypertension: -Amlodipine 5 mg once daily -Metoprolol 50 mg once daily -lisinopril 20 mg once daily Uncontrolled diabetes mellitus Accu-Chek monitor HbA1c ordered Mild insulin sliding scale and monitor labs Hypercholesterolemia: Atorvastatin GI prophylaxis: Pantoprazole DVT prophylaxis: Lovenox Diet: Cardiac Goals of care discussed with the patient for more than 27 minutes: Full code status Case discussed with Dr. Wen, patient and RN Plan discussed with: Patient, Other (RN) My Orders Orders - TEJ ODELL Procedure Category Date Status Time Allergies BANNER 01/15/25 In Process 23:05 Code Status CODE 01/15/25 Transmitted 23:05 Oxygen Per Hour RT 01/15/25 Transmitted 23:05 Ondansetron Hcl PHA 01/15/25 In Process (Zofran) 23:15 Complete Blood Count LAB 01/16/25 Verified 04:00 Comprehensive LAB 01/16/25 Verified Metabolic Panel 04:00 Cardiac DIET 01/16/25 Transmitted Diet-2gna,Lofat,Lochol Breakfast Enoxaparin Sodium PHA 01/16/25 In Process (Lovenox) 10:00 Acetaminophen Tablet PHA 01/15/25 In Process (Tylenol Tablet) 23:15 Oxygen By Nasal RT 01/15/25 Transmitted Cannula 23:05 Stat Ekg For Chest BANNER 01/15/25 In Process Pain 23:05 Notify Md Of Changes BANNER 01/15/25 In Process From Base 23:05 District Adviser For BANNER 01/15/25 In Process 24 Hours 23:05 Emergency Dysrhythmia BANNER 01/15/25 In Process Protocol 23:05 Rhythm Strips Once BANNER 01/15/25 In Process Every Shift 23:05 Admit ADMIT 01/15/25 Transmitted 23:40 Date of Service: Jan 16, 2025 Billing Provider: GALILEO WEN MD Common Visit Codes: [id number] INP/OBS CARE (HIGH) Secondary Visit Codes: [id number] CARE PLAN 30 MINUTES TEJ ODELL Jan 15, 2025 23:41
[2025-01-16] VITALS (10 sets, daily range): BP systolic 125–157; BP diastolic 63–80; PULSE 85–99; RESP 16–20; TEMP 98–98.3; O2SAT 94–99
[2025-01-16] MEDS ORDERED: VANCOMYCIN 1.5GM/300ML 300 ML IV SCH (01:15)
[2025-01-16] MEDS: HYDROcodone-ACET 10/325MG TAB PO ONE (02:59)
[2025-01-16] MEDS ORDERED: DEXTROSE (50%) 50ML SYRG IV PRN (05:45)
[2025-01-16] MEDS: InsuLIN REG 1unit/0.01ml Soln (100units/ml) SC SCH (06:15)
[2025-01-16] MEDS: ACCU-CHEK COMFORT CURVE STRIP VI SCH (06:16)
[2025-01-16] MEDS: PANTOPRAZOLE 40 MG TAB PO SCH (06:17)
[2025-01-16 06:24] LABS: Chloride 106 mmol/L (98-107); Sodium 141 mmol/L (136-145)
[2025-01-16 06:25] LABS: Anion Gap 11 (5-15); Carbon Dioxide 24 mmol/L (20-31)
[2025-01-16 06:30] LABS: Alkaline Phosphatase 78 U/L (46-116); BUN/Creatinine Ratio 11.7 (10.0-20.0); Blood Urea Nitrogen 7 mg/dL (9-23); Calcium 8.5 mg/dL (8.7-10.4); Glucose 214 mg/dL (74-106); Potassium 3.2 mmol/L (3.5-5.1)
[2025-01-16 06:31] LABS: Total Protein 6.6 g/dL (5.7-8.2)
[2025-01-16 06:32] LABS: Albumin 3.7 g/dL (3.2-4.8); Bilirubin, Total 1.0 mg/dL (0.2-1.0)
[2025-01-16 06:46] LABS: Hematocrit 36.8 % (36.0-46.0); Hemoglobin 12.3 g/dL (12.2-16.2); Mean Corpuscular Hemoglobin 28.9 pg (28.0-32.0); Mean Corpuscular Volume 86.1 fL (80.0-100.0); Nucleated Red Blood Cells % 0.0 %
[2025-01-16 07:03] LABS: Alanine Aminotransferase < 9 U/L (7-40)
[2025-01-16] MEDS: cefTRIAXone 1GM/50ML D5W 50 ML IV SCH (09:06)
[2025-01-16] MEDS: LISINOPRIL 5 MG TAB PO SCH (09:07)
[2025-01-16] MEDS: METOPROLOL SUCCINATE XL 50 MG TAB PO SCH (09:07)
[2025-01-16] MEDS: ENOXAPARIN SOD 40 MG/0.4 ML SYRINGE SC SCH (09:08)
[2025-01-16] MEDS: POTASSIUM EFFERVESENT TAB 25 MEQ GT ONE (09:17)
[2025-01-16] MEDS: ACETAMINOPHEN 325 MG TAB PO PRN (09:18)
[2025-01-16] MEDS ORDERED: ENOXAPARIN SOD 30 MG/0.3 ML SYRINGE SC SCH (10:00)
--- NOTE | 2025-01-16 11:35 | DVHPNRES ---
Progress Note Date Seen: Jan 16, 2025 Resident Creating Document: HUGO CAMRAENA RESIDENT Medical Necessity Reason Pt with a Central, PICC or Fol: No Subjective Review of Systems Mile Tsang is a 74-year-old female with past medical history of diabetes, hypertension, hyperlipidemia, presented to the ER with chief complaint of pain in head, radiating to the neck, bilateral shoulders since the last 5 days. She also complained of pain and swelling in the right wrist following a fall. She complained of diarrhea since last 1 week, with no bloody stools. Diarrhea was associated with periumbilical pain. She complains of a flu-like illness 2 weeks back, has residual cough. The cough was initially with brown expectoration, now is dry. She also complained of shortness of breaths, which increases on lying down and she wakes up gasping for air. She consulted a baseball glove shaper, no cardiac cause reported. Reported no sick contact, recent travel. She has history of chronic tingling in the bilateral legs. Previous hospitalization: PMHx: Hypertension, hyperlipidemia, diabetes mellitus Social history: Reports no alcohol, smoking, recreational drug use. Lives in house. Home medication: Amlodipine, atorvastatin, metformin, metoprolol, lisinopril, gabapentin, triamcinolone ROS: Constitutional: Denies weight loss, fever and chills. HEENT: Ringing in bilateral ears Respiratory: Shortness of breaths and cough Cardiovascular: Denies chest discomfort or palpitations GI: Nausea, diarrhea, abdominal pain : Denies dysuria and urinary frequency. Musculoskeletal: Pain in neck, bilateral shoulders, pain and swelling in right wrist Skin: Denies rash and pruritus. Neurological: Denies dizziness, headache, vision or hearing problems She was examined at bedside today. She continues to complain of pain and swelling in the right wrist, neck. We will continue monitoring and managing Objective vital signs Vital Sign Date Time Temp Pulse Resp B/P (MAP) Pulse Ox O2 Delivery O2 Flow Rate FiO2 01/16/25 09:07 144/78 01/16/25 09:07 92 01/16/25 08:49 98.0 16 97 98.0 01/16/25 07:30 Nasal Cannula* 2 28 Total Intake and Output 01/15/25 01/15/25 01/16/25 15:00 23:00 07:00 Intake Total 50 ml 120 ml Balance 50 ml 120 ml medications Current Medications Medications Dose Ordered Sig/Jesse Route Start Time Stop Time Status Last Admin Dose Admin Ondansetron HCl 4 mg Q4HP PRN IV 01/15/25 23:15 Acetaminophen 650 mg Q6HP PRN PO 01/15/25 23:15 01/16/25 09:18 650 MG Ceftriaxone Sodium 50 ml @ 100 mls/hr DAILY@09 IV 01/16/25 09:00 01/16/25 09:06 100 MLS/HR Vancomycin HCl 300 ml @ 200 mls/hr Q12H IV 01/16/25 01:15 UNV Metoprolol Succinate 50 mg DAILY PO 01/16/25 10:00 01/16/25 09:07 50 MG Amlodipine Besylate 5 mg DAILY PO 01/16/25 02:30 01/16/25 09:06 5 MG Lisinopril 10 mg DAILY PO 01/16/25 10:00 01/16/25 09:07 10 MG Diagnostic Test (Pha) 1 strip ACHS 01/16/25 07:00 01/16/25 06:16 1 STRIP Insulin Human Regular ACHS SC 01/16/25 07:00 01/16/25 06:15 3 UNITS Dextrose 50 ml UD PRN IV 01/16/25 05:45 Pantoprazole Sodium 40 mg DAILY@0600 PO 01/16/25 06:00 01/16/25 06:17 40 MG Enoxaparin Sodium 40 mg DAILY SC 01/16/25 10:00 01/16/25 09:08 40 MG Examination General: Patient alert and oriented in person, place and time. Patient following commands. HEENT: Tenderness in the neck on extension. No meningeal signs. Respiratory/pulmonary: Clear lungs bilaterally, vesicular murmurs present in almost all lung caceres, no associated crackles or wheezes. Cardiovascular: Normal heart sounds S1 and S2 with no associated murmurs Abdomen: Epigastric tenderness on palpation Extremities: Right wrist swelling, raised temperature, tenderness on palpation Peripheral Pulses: 3+ Radial (R). 3+ Radial (L). 3+ Dorsalis pedis (R). 3+ Dorsalis pedis(L) Skin: No rashes or pruritus, there is no sacral edema present at this time. Neurological: Intact cranial nerves with no focal neurologic deficits laboratory and microbiology Laboratory Tests 01/16/25 05:52 Test 01/16/25 05:52 Range/Units Serum Glucose 214 H 74-106 mg/dL Problem List/Assessment/Plan Problem List/Assessment/Plan Sepsis due to below Right wrist cellulitis UTI, possible Gastroenteritis, likely infectious Lactic acidosis, resolved now Neutrophilic leukocytosis On Admission, tachycardia, tachypnea, fever Wrist x-ray: Bony demineralization.No definite acute fracture. Tiny radiopaque densities adjacent to the distal carpal row at the radial aspect which could reflect foreign bodies.Mild 1st CMC joint osteoarthritis. Soft tissue swelling about the distal right forearm and wrist. Urine, blood culture ordered Continue ceftriaxone, vancomycin Pain management, Zofran Uncontrolled diabetes mellitus, A1c 9.5 Continue sliding scale insulin Uncontrolled hypertension Continue amlodipine, metoprolol, lisinopril Hyperlipidemia Continue atorvastatin Hypokalemia Supplemented DIET: CC DVT PROPHYLAXIS: Lovenox GI PROPHYLAXIS: Protonix CODE STATUS: Goals of care discussed with patient at bedside for more than 35 minutes. Full code DISPOSITION: Med/surge Patient's status and plan discussed with the patient. Case discussed with Dr. Pryor. Plan discussed with: Patient My Orders My Orders Orders - HUGO CAMARENA RESIDENT Procedure Category Date Status Time Potassium LAB 01/16/25 Logged 13:00 Date of Service: Jan 16, 2025 Billing Provider: GABRIEL PRYOR MD Common Visit Codes: [id number] INP/OBS CARE(HIGH) HUGO CAMARENA Jan 16, 2025 11:35 GABRIEL PRYOR MD Jan 16, 2025 23:26
--- NOTE | 2025-01-16 12:04 | ECG ---
[facility] Test Date: 2025-01-15 Test Time: 18:38:39 Pat Name: LYNN CHAPMAN Department: Room: 0246T A Gender: F Channel Man: MELLISA : 1950 Requested By: LESTER MARTINEZ Order Number: [id number] Reading MD: Nuno Fuller Measurements Intervals [place] Rate: 102 P: 54 [place]: 105 QRS: -15 QRSD: 90 T: 10 QT: 330 QTc: 430 Interpretive Statements Sinus tachycardia Borderline left axis deviation Borderline T wave abnormalities Artifact in lead(s) I,II,III,aVR,aVL,V1,V3,V4,V5,V6 Electronically Signed On 01-19-2025 22:45:56 PDT by Nuno Fuller Please click the below link to view image of tracing.
[2025-01-16] MEDS: LACTATED RINGER'S 1,000 ML IV SCH (13:44)
[2025-01-16] MEDS: CEFEPIME 1GM/ 50ML 50 ML IV SCH (16:59)
[2025-01-16 18:09] LABS: Chloride 104 mmol/L (98-107); Potassium 3.9 mmol/L (3.5-5.1); Sodium 139 mmol/L (136-145)
[2025-01-16 18:10] LABS: Anion Gap 10 (5-15); Carbon Dioxide 25 mmol/L (20-31)
[2025-01-16 18:15] LABS: BUN/Creatinine Ratio 10.5 (10.0-20.0)
[2025-01-16 18:30] LABS: Blood Urea Nitrogen 6 mg/dL (9-23); Calcium 8.7 mg/dL (8.7-10.4); Glucose 233 mg/dL (74-106)
[2025-01-16 18:34] LABS: Hematocrit 39.7 % (36.0-46.0); Hemoglobin 13.1 g/dL (12.2-16.2); Mean Corpuscular Hemoglobin 29.0 pg (28.0-32.0); Mean Corpuscular Volume 88.2 fL (80.0-100.0); Nucleated Red Blood Cells % 0.1 %
--- NOTE | 2025-01-16 20:53 | DVH ---
Exam: US RIGHT UPPER EXT. Date: 01/16/2025 07:52 PM Clinical History: Pain swelling Comparison: XY R WRIST 3+ VIEW XRAY on DOS: 01/15/25, XY R HAND 3 VIEW XRAY on DOS: 01/06/23 Technique: Targeted sonographic evaluation of the soft tissues of the right hand was obtained utilizing grayscal e and color Doppler imaging. Findings: There is no evidence for drainable collection. There is no evidence for solid or cystic mass in the site. No vascular abnormalities identified at this site. IMPRESSION: 1. No definite sonographic abnormality is identified in the soft tissues of the [facility]. 2. Subcutaneous edema no drainable fluid collections. HS:Y HS:Y
[2025-01-16] MEDS ORDERED: VANCOMYCIN PER PHARMACY 0 MG IV SCH (21:00)
--- NOTE | 2025-01-16 21:12 | DVH ---
INDICATION: rule out deep palmar tissue pathology or free gas/ air COMPARISON: XY R WRIST 3+ VIEW XRAY on DOS: 01/15/25, XY R HAND 3 VIEW XRAY on DOS: 01/06/23 TECHNIQUE: CT of the right hand was performed without contrast. Volume transverse images were obtaine d and reconstructed in multiple planes using bone and soft tissue algorithms. Radiation Dose Information: CT Dose: CTDI volume is 7.8 mGy. Dose-length product is 187.7 mGy*cm FINDINGS: The alignment is normal. Diffuse degenerative changes. There is no fracture, dislocation or aggressive osseous lesion. There is no joint effusion. 2 adjacent punctate adjacent to the scaphoid. Diffuse soft-tissue edema and swelling. No fluid collection. No subcutaneous emphysema. IMPRESSION: Possible cellulitis.
[2025-01-16] MEDS: KETOROLAC TROMETH 30 MG/ML 1ML VIAL IV ONE (21:38)
[2025-01-16] MEDS: ACCU-CHEK COMFORT CURVE STRIP VI PRN (22:30)
[2025-01-16] MEDS: VANCOMYCIN 1.25GM/250ML 250 ML IV SCH (22:30)
[2025-01-16] MEDS: INSULIN LANTUS (GLARGINE) 1 /0.01ml (100units/ml) SC SCH (22:30)
[2025-01-16] MEDS: InsuLIN REG 1unit/0.01ml Soln (100units/ml) SC PRN (22:56)
[2025-01-17] VITALS (14 sets, daily range): BP systolic 123–146; BP diastolic 68–92; PULSE 75–179; RESP 15–23; TEMP 98–99.8; O2SAT 93–98
[2025-01-17] MEDS: InsuLIN REG 1unit/0.01ml Soln (100units/ml) SC SCH
[2025-01-17] MEDS: ACCU-CHEK COMFORT CURVE STRIP VI SCH
[2025-01-17] MEDS: CEFEPIME 1GM/ 50ML 50 ML IV SCH (00:44)
[2025-01-17] MEDS: METOPROLOL SUCCINATE XL 50 MG TAB PO ONE (04:48)
[2025-01-17] MEDS: AMIODARONE BOLUS KIT 100 ML IV ONE (05:21)
[2025-01-17] MEDS: AMIODARONE 360mg/200mL PREMIX 200 ML IV ONE (05:34)
[2025-01-17] MEDS: APIXABAN 5 MG TAB PO ONE (05:49)
[2025-01-17] MEDS: APIXABAN 5 MG TAB PO SCH (08:50)
--- NOTE | 2025-01-17 10:01 | DVH ---
RIGHT Upper Extremity Venous Duplex Clinical History: Swollen hand Comparison: US RIGHT UPPER EXT. on DOS: 01/16/25, XY R WRIST 3+ VIEW XRAY on DOS: 01/15/25, XY R HAND 3 VIEW XRAY on DOS: 01/06/23 Technique: Duplex Doppler evaluation of the venous system of the RIGHT lower neck and upper extremity including color Doppler and spectral/pulsed waveform analysis was performed. Findings: The internal jugular vein demonstrates appropriate compressibility and waveform variability. The subclavian vein is patent on color Doppler evaluation without intraluminal thrombus and demonstra ky waveform variability. The visualized portion of the brachiocephalic vein is patent on color Doppler evaluation without intr aluminal thrombus and demonstrates waveform variability. The axillary vein demonstrates appropriate compressibility and waveform variability. The brachial veins demonstrate appropriate compressibility and patency on Doppler evaluation. The basilic vein demonstrates appropriate compressibility and patency on Doppler evaluation. The cephalic vein demonstrates appropriate compressibility and patency on Doppler evaluation. Impression: 1. No venous thrombus identified in the RIGHT upper extremity vessels evaluated above. 2. If clinical concern/symptoms persist or worsen, short-interval follow-up study is suggested.
--- NOTE | 2025-01-17 10:04 | DVHINCON2 ---
Date Seen: Jan 17, [address] Orellana Reason for Consultation AFib with RVR History of Present Illness 74-year-old female with past medical history of hypertension, type 2 diabetes mellitus, and hyperlipidemia, admitted for sepsis, uncontrolled hypertension, and uncontrolled diabetes, developed new onset atrial fibrillation with rapid ventricular response. Cardiology was consulted. On assessment, the patient is alert and oriented, mainly Indonesian-speaking, reports chest palpitations but denies dizziness, syncope, or shortness of breath. A 12 lead ECG revealing AFib with RVR. The patient was started on amiodarone drip per protocol and Eliquis 5 mg b.i.d. for anticoagulation. Past Medical History As stated in HPI Past Surgical History Denies Family History: Hypertension G8 MOTHER G8 FATHER Family History Reviewed, non-contributory to the management of this case. Social History The patient lives at home, denies smoking, alcohol or illicit drugs abuse. Allergies: Coded Allergies: NO KNOWN ALLERGIES (Unverified , 06/18/19) Home Meds Active Scripts Cephalexin (KEFLEX CAPSULE) 250 Mg Cp, 1 CAP PO QID, #28 CAP Prov:HENRIK MOLINA MD 01/08/23 Reported Medications Metformin Hydrochloride (Metformin Hcl) 1,000 Mg Tab, 1 TAB PO BID 01/08/23 Amlodipine Besylate (Amlodipine Besylate) 10 Mg Tab, 1 TAB PO DAILY 01/08/23 Metoprolol Tartrate (Lopressor) 25 Mg Tb, 1 TAB PO BID 01/08/23 Atorvastatin Calcium (ATORVASTATIN CALCIUM) 10 Mg Tab, 1 TAB PO 01/08/23 Pioglitazone Hydrochloride (PIOGLITAZONE HCL) 15 Mg Tab, 1 TAB PO DAILY 01/08/23 Current Medications Current Medications Medications (Trade) Dose Ordered Sig/Jesse Route PRN Reason Start Time Stop Time Status Last Admin Cefepime HCl 50 ml @ 12.5 mls/hr Q8HR IV 01/16/25 14:00 01/16/25 21:35 DC 01/16/25 16:59 Lactated Ringer's 1,000 ml @ 75 mls/hr [id number] IV 01/16/25 13:15 01/16/25 13:44 Amlodipine Besylate (Norvasc Tablet) 10 mg DAILY PO 01/17/25 10:00 01/17/25 08:50 Diagnostic Test (Pha) (Accu-Chek Comfort Curve T) 1 strip Q6HP PRN Code Medication 01/16/25 19:30 01/16/25 23:26 DC 01/16/25 22:30 Insulin Human Regular (InsuLIN R) Q6HP PRN SC DIABETES 01/16/25 19:30 01/16/25 23:26 DC Insulin Glargine (Lantus) 20 units HS SC 01/16/25 22:00 01/16/25 22:30 Vancomycin HCl 0 ml @ 0 mls/hr UD IV 01/16/25 21:00 Cefepime HCl 50 ml @ 12.5 mls/hr Q8H IV 01/17/25 01:00 01/17/25 08:49 Vancomycin HCl 250 ml @ 200 mls/hr DAILY@2200 IV 01/16/25 22:00 01/16/25 22:30 Diagnostic Test (Pha) (Accu-Chek Comfort Curve T) 1 strip Q6HR 01/17/25 00:00 01/17/25 06:29 Insulin Human Regular (InsuLIN R) Q6HR SC 01/17/25 00:00 01/17/25 06:30 Apixaban (Eliquis) 5 mg BID PO 01/17/25 10:00 01/17/25 08:50 Review of Systems Constitutional: No symptom reported Ears, Nose, & Throat: No symptom reported Eyes: No symptom reported Neurological: No symptoms reported Pulmonary/Respiratory: No symptom reported Cardiovascular: Complaint of palpitation, denies chest pain or palpitation prior to admission. Gastrointestinal: No symptom reported Genitourinary: No symptom reported Musculoskeletal: No symptom reported Skin: No symptom reported Psychiatric: No symptom reported Endocrine: No symptom reported Hematologic/Lymphatic: No symptom reported Vital Signs Vital Signs Date Time Temp Pulse Resp B/P (MAP) Pulse Ox O2 Delivery O2 Flow Rate FiO2 01/17/25 09:23 137/68 01/17/25 08:54 98.2 117 18 97 98.2 01/16/25 20:00 Nasal Cannula* 2 28 Physical Exam INITIAL VITAL SIGNS: Reviewed by me GENERAL: Alert and interactive. No acute distress. HEAD: Head is normocephalic and atraumatic. EYES: EOMI, PERRL. No scleral icterus. No conjunctival injection. ENT: Moist mucous membranes. NECK: Supple, No masses, Full range of motion. RESPIRATORY: No tachypnea. Clear breath sounds bilaterally. No wheezing, rales, rhonchi. CV: Irregularly irregular rhythm, AFib with RVR GI/: Active bowel sounds, soft, nondistended, nontender. No guarding. No rebound. No masses. No CVA tenderness. INTEGUMENTARY: Warm and dry. No obvious rashes. NEUROLOGIC: Alert and oriented. Face is symmetric. Speech is normal. Moves all extremities equally. Labs/Diagnostic Data Labs Test 01/17/25 07:18 01/17/25 06:13 01/16/25 17:44 01/16/25 05:52 Range/Units Creatinine 0.62 0.550-1.02 mg/dL Glomerular Filtration Rate Calc 95 >90 mL/min POC Glucose 245 H 70-106 mg/dl White Blood Count 14.6 H 4.4-10.8 10^3/uL Red Blood Count 4.50 4.0-5.20 10^6/uL Hemoglobin 13.1 12.2-16.2 g/dL Hematocrit 39.7 36.0-46.0 % Mean Corpuscular Volume 88.2 80.0-100.0 fL Mean Corpuscular Hemoglobin 29.0 28.0-32.0 pg Mean Corpuscular Hemoglobin Concent 32.9 32.0-36.0 g/dL Red Cell Distribution Width 13.6 11.8-14.3 % Platelet Count 372 140-450 10^3/uL Mean Platelet Volume 7.5 6.9-10.8 fL Neutrophils (%) (Auto) 80.7 H 37.0-80.0 % Lymphocytes (%) (Auto) 10.2 10.0-50.0 % Monocytes (%) (Auto) 7.7 0.0-12.0 % Eosinophils (%) (Auto) 1.1 0.0-7.0 % Basophils (%) (Auto) 0.3 0.0-2.0 % Neutrophils # (Auto) 11.8 H 1.6-8.6 10 ^3/uL Lymphocytes # (Auto) 1.5 0.4-5.4 10 ^3/uL Monocytes # (Auto) 1.1 0-1.3 10 ^3/uL Eosinophils # (Auto) 0.2 0-0.8 10 ^3/uL Basophils # (Auto) 0 0-0.2 10 ^3/uL Nucleated Red Blood Cells 0.1 % Sodium Level 139 136-145 mmol/L Potassium Level 3.9 3.5-5.1 mmol/L Chloride Level 104 98-107 mmol/L Carbon Dioxide Level 25 20-31 mmol/L Anion Gap 10 5-15 Blood Urea Nitrogen 6 L 9-23 mg/dL BUN/Creatinine Ratio 10.5 10.0-20.0 Serum Glucose 233 H 74-106 mg/dL Calcium Level 8.7 8.7-10.4 mg/dL Hemoglobin A1c 9.5 H <5.7 % A1C Total Bilirubin 1.0 0.2-1.0 mg/dL Aspartate Amino Transferase (AST) 10 L 13-40 U/L Alanine Aminotransferase (ALT) < 9 7-40 U/L Alkaline Phosphatase 78 46-116 U/L Total Protein 6.6 5.7-8.2 g/dL Albumin 3.7 3.2-4.8 g/dL Test 01/15/25 21:10 01/15/25 20:20 01/15/25 20:18 01/15/25 19:54 Range/Units Lactic Acid Level 1.5 0.4-2.0 mmol/L Influenza Type A Antigen Negative Negative Influenza Type B Antigen Negative Negative SARS-CoV-2 Antigen (Rapid) Negative NEGATIVE Urine Color Colorless Yellow Urine Clarity Clear Clear Urine pH 5.5 5.0-9.0 Urine Specific [place] 1.009 1.001-1.035 Urine Protein Negative Negative Urine Ketones Trace Negative Urine Blood Negative Negative /uL Urine Nitrite Negative Negative Urine Bilirubin Negative Negative Urine Urobilinogen Normal Negative mg/dL Urine Leukocyte Esterase 1+ Negative /uL Urine RBC 1 0 - 4 /hpf Urine Microscopic WBC 4 0-5 /HPF Urine Squamous Epithelial Cells Few <5 /hpf Urine Bacteria Many H None Seen /hpf Urine Glucose Normal Normal mg/dL Troponin I High Sensitivity 3 L </=34 ng/L Microbiology Date/Time Source Procedure Growth Status 01/15/25 19:10 Blood Blood Culture - Preliminary NO GROWTH AFTER 24 HOURS OF INCUBATION. Resulted PROCEDURE(s): CXR1 - CHEST XRAY 1 VIEW REASON: Suspected Sepsis ORDER NUMBER(s): [id number], ACCESSION NUMBER(s): [id number] EXAM: XY CHEST XRAY 1 VIEW CLINICAL HISTORY: Suspected Sepsis TECHNIQUE: Single AP view of the chest WID: COMPARISON: XY CHEST PORTABLE on DOS: 01/08/23 FINDINGS: Lines and tubes: None Chest: The heart size and pulmonary vasculature is within normal limits. No pleural effusion, pneumothorax, or consolidation. Linear bibasilar scarring or atelectasis. The osseous structures are grossly intact. Multilevel thoracic spondylosis. IMPRESSION: No acute cardiopulmonary abnormality. Assessment AFib with RVR, new onset (CHADS-VASc score 4, HAS-BLED 2) Hypertension Type 2 diabetes with hyperglycemia Hyperlipidemia Sepsis Plan/Recommendation (Dr. Armenta ): * Continue amiodarone drip per protocol; monitor rhythm, hemodynamics, and QTC interval * Continue Eliquis 5 mg b.i.d. for anticoagulation * Ordered transthoracic echocardiogram to assess cardiac structure and function * Check magnesium level and replete if * Check TSH-thyroid function as possible contributor to artery * Ordered lipid panel for risk stratification and management of hyperlipidemia * Optimize BP and glucose control with primary team * Continue sepsis management * Cardiology to follow closely; reassess rhythm vs. Long-term rate control strategy once patient is stabilizes This medical document was created using an electronic medical record system with voice recognition software and computerized dictation system. Although this document has been carefully reviewed, there might still be some phonetic and typographical errors. Occasional wrong-word or ``sound-alike substitutions may have occurred due to the inherent limitations of voice recognition software. These areas are purely typographical due to imperfections of the software programs and do not reflect any compromise in the patient's medical care. Please read the chart carefully and recognize, using context, where these substitutions have occurred. Plan discussed with: Patient Plan discussed with: Patient NYHA Physical activity limitations: NA Date of Service: Jan 17, 2025 Billing Provider: DAMION ARMENTA MD Cardiology Common Codes: CONSULT ONLY Cardiology Consultation Codes: [id number] CONSULT <60MIN [employer]ON [employer] MAINTENANCE SUPERVISOR Jan 17, 2025 10:04
[2025-01-17 10:35] LABS: Hematocrit 40.5 % (36.0-46.0); Hemoglobin 13.4 g/dL (12.2-16.2); Mean Corpuscular Hemoglobin 28.8 pg (28.0-32.0); Mean Corpuscular Volume 87.0 fL (80.0-100.0); Nucleated Red Blood Cells % 0.1 %
[2025-01-17 11:18] LABS: Albumin 3.7 g/dL (3.2-4.8); Alkaline Phosphatase 82 U/L (46-116); Anion Gap 12 (5-15); Calcium 8.8 mg/dL (8.7-10.4); Carbon Dioxide 22 mmol/L (20-31); Chloride 103 mmol/L (98-107); Sodium 137 mmol/L (136-145); Total Protein 7.0 g/dL (5.7-8.2); Triglycerides 75 mg/dL (< 150)
[2025-01-17 11:19] LABS: Alanine Aminotransferase < 9 U/L (7-40); BUN/Creatinine Ratio 8.1 (10.0-20.0); Bilirubin, Total 0.7 mg/dL (0.2-1.0); Blood Urea Nitrogen < 5 mg/dL (9-23); Cholesterol 101 mg/dL (< 200); Glucose 240 mg/dL (74-106); HDL Cholesterol 35 mg/dL (40-59); Magnesium 1.5 mg/dL (1.6-2.6); Potassium 3.4 mmol/L (3.5-5.1)
--- NOTE | 2025-01-17 12:04 | DVHPN2 ---
Reviewed: Care Plan, H&P, Labs, Medications, Previous Orders, Radiology Changes from previous H/P or p: No Changes Objective Vitals Vital Signs Date Time Temp Pulse Resp B/P (MAP) Pulse Ox O2 Delivery O2 Flow Rate FiO2 01/17/25 09:23 137/68 01/17/25 08:54 98.2 117 18 97 98.2 01/17/25 08:00 Nasal Cannula* 2 28 Intake/Output Intake and Output 01/17/25 07:00 Intake Total 1820 ml Balance 1820 ml Intake Oral 1420 ml IV Total 400 ml # Voids 8 # Bowel Movements 2 Medications Current Medications Medications Dose Ordered Sig/Jesse Route Start Time Stop Time Status Last Admin Dose Admin Ondansetron HCl 4 mg Q4HP PRN IV 01/15/25 23:15 Acetaminophen 650 mg Q6HP PRN PO 01/15/25 23:15 01/17/25 08:49 650 MG Vancomycin HCl 300 ml @ 200 mls/hr Q12H IV 01/16/25 01:15 UNV Metoprolol Succinate 50 mg DAILY PO 01/16/25 10:00 01/17/25 08:51 50 MG Lisinopril 10 mg DAILY PO 01/16/25 10:00 01/17/25 09:23 10 MG Dextrose 50 ml UD PRN IV 01/16/25 05:45 Pantoprazole Sodium 40 mg DAILY@0600 PO 01/16/25 06:00 01/17/25 06:00 40 MG Lactated Ringer's 1,000 ml @ 75 mls/hr [id number] IV 01/16/25 13:15 01/16/25 13:44 75 MLS/HR Amlodipine Besylate 10 mg DAILY PO 01/17/25 10:00 01/17/25 08:50 10 MG Insulin Glargine 20 units HS SC 01/16/25 22:00 01/16/25 22:30 20 UNITS Vancomycin HCl 0 ml @ 0 mls/hr UD IV 01/16/25 21:00 Cefepime HCl 50 ml @ 12.5 mls/hr Q8H IV 01/17/25 01:00 01/17/25 08:49 12.5 MLS/HR Vancomycin HCl 250 ml @ 200 mls/hr DAILY@2200 IV 01/16/25 22:00 01/16/25 22:30 200 MLS/HR Diagnostic Test (Pha) 1 strip Q6HR 01/17/25 00:00 01/17/25 06:29 1 STRIP Insulin Human Regular Q6HR SC 01/17/25 00:00 01/17/25 06:30 4 UNITS Apixaban 5 mg BID PO 01/17/25 10:00 01/17/25 08:50 5 MG Laboratory Results Laboratory Tests 01/17/25 07:18 Chemistry Test 01/16/25 17:44 01/17/25 07:18 Calcium Level 8.7 mg/dL (8.7-10.4) 8.8 mg/dL (8.7-10.4) Albumin 3.7 g/dL (3.2-4.8) Magnesium Level 1.5 mg/dL (1.6-2.6) L Total Protein 7.0 g/dL (5.7-8.2) Lipid panel Test 01/17/25 07:18 Cholesterol Level 101 mg/dL (< 200) HDL Cholesterol 35 mg/dL (40-59) L Triglycerides Level 75 mg/dL (< 150) Cardiac Markers Test 01/17/25 07:18 B-Type Natriuretic Peptide 206.27 pg/mL (0-100) LFT Test 01/17/25 07:18 Alanine Aminotransferase (ALT) < 9 U/L (7-40) Alkaline Phosphatase 82 U/L (46-116) Aspartate Amino Transferase (AST) 12 U/L (13-40) L Total Bilirubin 0.7 mg/dL (0.2-1.0) HgA1c, TSH Test 01/17/25 07:18 Thyroid Stimulating Hormone (TSH) 0.66 uIU/mL (0.55-4.78) Urinalysis Test 01/15/25 20:18 Urine Color Colorless (Yellow) Urine Clarity Clear (Clear) Urine pH 5.5 (5.0-9.0) Urine Specific [place] 1.009 (1.001-1.035) Urine Protein Negative (Negative) Urine Ketones Trace (Negative) Urine Blood Negative /uL (Negative) Urine Nitrite Negative (Negative) Urine Bilirubin Negative (Negative) Urine Urobilinogen Normal mg/dL (Negative) Urine Leukocyte Esterase 1+ /uL (Negative) Urine RBC 1 /hpf (0 - 4) Urine Microscopic WBC 4 /HPF (0-5) Urine Squamous Epithelial Cells Few /hpf (<5) Urine Bacteria Many /hpf (None Seen) H Urine Glucose Normal mg/dL (Normal) Microbiology Microbiology Date/Time Source Procedure Growth Status 01/15/25 19:10 Blood Blood Culture - Preliminary NO GROWTH AFTER 24 HOURS OF INCUBATION. Resulted Labs and/or images reviewed: Labs reviewed by me, Image(s) reviewed by me Assessment/Plan Assessment/Plan Covering for resident physician Sepsis secondary to right wrist cellulitis Right wrist cellulitis cefepime vancomycin UTI Acute gastroenteritis Uncontrolled diabetes A1c 9.5: Counseling insulin sliding scale Uncontrolled hypertension Hyperlipidemia Hypokalemia replace potassium New onset AFib amiodarone drip metoprolol Time Spent 45 minutes Plan discussed with: Patient Date of Service: Jan 17, 2025 Billing Provider: KIMBERLEY BENJAMIN MD Common Visit Codes: [id number] INP/OBS CARE(HIGH) KIMBERLEY BENJAMIN MD Jan 17, 2025 12:04
[2025-01-17] MEDS: AMIODARONE 360mg/200mL PREMIX 200 ML IV SCH (12:58)
[2025-01-17] MEDS: AMIODARONE HCL 200 MG TAB PO ONE (12:58)
--- NOTE | 2025-01-17 13:00 | ECG ---
[facility] Test Date: 2025-01-17 Test Time: 12:58:13 Pat Name: LYNN CHAPMAN Department: Room: 0246T A Gender: F Associate Programmer Analyst: JOYA : 1950 Requested By: MOUNA CHAVIRA Order Number: [id number] Reading MD: Nuno Fuller Measurements Intervals [place] Rate: 77 P: 38 [place]: 139 QRS: -23 QRSD: 91 T: 19 QT: 406 QTc: 460 Interpretive Statements Sinus rhythm Borderline left axis deviation Electronically Signed On 01-19-2025 22:16:26 PDT by Nuno Fuller Please click the below link to view image of tracing.
[2025-01-17] MEDS: AMIODARONE HCL 200 MG TAB PO SCH (21:46)
--- NOTE | 2025-01-17 23:22 | DVHINCON2 ---
Date Seen: Jan 17, [address] Orellana Reason for Consultation AFib with RVR History of Present Illness This is a 74-year-old female with a past medical history of hypertension, type 2 diabetes mellitus, and hyperlipidemia, admitted for sepsis, uncontrolled hypertension, and uncontrolled diabetes, developed new onset atrial fibrillation with rapid ventricular response. Cardiology was consulted. On assessment, the patient is alert and oriented, mainly Persian-speaking, reports chest palpitations but denies dizziness, syncope, or shortness of breath. A 12 lead ECG revealing AFib with RVR. Patient was started on amiodarone drip per protocol and Eliquis 5 mg b.i.d. for anticoagulation. WBC 20, K 3.4, MG 1.5. Chest x-ray shows NAD. Past Medical History As stated in HPI Past Surgical History Denies Family History: Hypertension G8 MOTHER G8 FATHER Allergies: Coded Allergies: NO KNOWN ALLERGIES (Unverified , 06/18/19) Home Meds Active Scripts Cephalexin (KEFLEX CAPSULE) 250 Mg Cp, 1 CAP PO QID, #28 CAP Prov:HENRIK MOLINA MD 01/08/23 Reported Medications Metformin Hydrochloride (Metformin Hcl) 1,000 Mg Tab, 1 TAB PO BID 01/08/23 Amlodipine Besylate (Amlodipine Besylate) 10 Mg Tab, 1 TAB PO DAILY 01/08/23 Metoprolol Tartrate (Lopressor) 25 Mg Tb, 1 TAB PO BID 01/08/23 Atorvastatin Calcium (ATORVASTATIN CALCIUM) 10 Mg Tab, 1 TAB PO 01/08/23 Pioglitazone Hydrochloride (PIOGLITAZONE HCL) 15 Mg Tab, 1 TAB PO DAILY 01/08/23 Current Medications Current Medications Medications (Trade) Dose Ordered Sig/Jesse Route PRN Reason Start Time Stop Time Status Last Admin Cefepime HCl 50 ml @ 12.5 mls/hr Q8HR IV 01/16/25 14:00 01/16/25 21:35 DC 01/16/25 16:59 Amlodipine Besylate (Norvasc Tablet) 10 mg DAILY PO 01/17/25 10:00 01/17/25 08:50 Diagnostic Test (Pha) (Accu-Chek Comfort Curve T) 1 strip Q6HP PRN Code Medication 01/16/25 19:30 01/16/25 23:26 DC 01/16/25 22:30 Insulin Human Regular (InsuLIN R) Q6HP PRN SC DIABETES 01/16/25 19:30 01/16/25 23:26 DC Insulin Glargine (Lantus) 20 units HS SC 01/16/25 22:00 01/16/25 22:30 Vancomycin HCl 0 ml @ 0 mls/hr UD IV 01/16/25 21:00 Cefepime HCl 50 ml @ 12.5 mls/hr Q8H IV 01/17/25 01:00 01/17/25 08:49 Vancomycin HCl 250 ml @ 200 mls/hr DAILY@2200 IV 01/16/25 22:00 01/16/25 22:30 Diagnostic Test (Pha) (Accu-Chek Comfort Curve T) 1 strip Q6HR 01/17/25 00:00 01/17/25 11:59 Insulin Human Regular (InsuLIN R) Q6HR SC 01/17/25 00:00 01/17/25 12:00 Apixaban (Eliquis) 5 mg BID PO 01/17/25 10:00 01/17/25 08:50 Amiodarone HCl (Cordarone Tablet) 200 mg Q12HR PO 01/17/25 22:00 Review of Systems Constitutional: No symptom reported Ears, Nose, & Throat: No symptom reported Eyes: No symptom reported Neurological: No symptoms reported Pulmonary/Respiratory: No symptom reported Cardiovascular: Complaint of palpitation, denies chest pain or palpitation prior to admission. Gastrointestinal: No symptom reported Genitourinary: No symptom reported Musculoskeletal: No symptom reported Skin: No symptom reported Psychiatric: No symptom reported Endocrine: No symptom reported Hematologic/Lymphatic: No symptom reported Vital Signs Vital Signs Date Time Temp Pulse Resp B/P (MAP) Pulse Ox O2 Delivery O2 Flow Rate FiO2 01/17/25 09:49 100.0 01/17/25 09:23 137/68 01/17/25 08:54 117 18 97 01/17/25 08:00 Nasal Cannula* 2 28 Physical Exam GENERAL: Alert and oriented x 3. No acute distress. EYES: PERRL, EOMI. Anicteric. HENT: Moist mucous membranes. LUNGS: Clear to auscultation bilaterally. CARDIOVASCULAR: Irregular rate and rhythm. ABDOMEN: Soft, nontender and nondistended. EXTREMITIES: No edema. NEUROLOGIC: No focal neurological deficits. SKIN: Warm, dry. Labs/Diagnostic Data Labs Test 01/17/25 11:58 01/17/25 07:18 01/16/25 05:52 01/15/25 21:10 Range/Units POC Glucose 192 H 70-106 mg/dl White Blood Count 20.0 #H 4.4-10.8 10^3/uL Red Blood Count 4.66 4.0-5.20 10^6/uL Hemoglobin 13.4 12.2-16.2 g/dL Hematocrit 40.5 36.0-46.0 % Mean Corpuscular Volume 87.0 80.0-100.0 fL Mean Corpuscular Hemoglobin 28.8 28.0-32.0 pg Mean Corpuscular Hemoglobin Concent 33.1 32.0-36.0 g/dL Red Cell Distribution Width 13.4 11.8-14.3 % Platelet Count 407 140-450 10^3/uL Mean Platelet Volume 8.2 6.9-10.8 fL Neutrophils (%) (Auto) 82.7 H 37.0-80.0 % Lymphocytes (%) (Auto) 8.6 L 10.0-50.0 % Monocytes (%) (Auto) 7.3 0.0-12.0 % Eosinophils (%) (Auto) 1.0 0.0-7.0 % Basophils (%) (Auto) 0.4 0.0-2.0 % Neutrophils # (Auto) 16.5 H 1.6-8.6 10 ^3/uL Lymphocytes # (Auto) 1.7 0.4-5.4 10 ^3/uL Monocytes # (Auto) 1.5 H 0-1.3 10 ^3/uL Eosinophils # (Auto) 0.2 0-0.8 10 ^3/uL Basophils # (Auto) 0.1 0-0.2 10 ^3/uL Nucleated Red Blood Cells 0.1 % Sodium Level 137 136-145 mmol/L Potassium Level 3.4 L 3.5-5.1 mmol/L Chloride Level 103 98-107 mmol/L Carbon Dioxide Level 22 20-31 mmol/L Anion Gap 12 5-15 Blood Urea Nitrogen < 5 L 9-23 mg/dL Creatinine 0.62 0.550-1.02 mg/dL Glomerular Filtration Rate Calc 95 >90 mL/min BUN/Creatinine Ratio 8.1 L 10.0-20.0 Serum Glucose 240 H 74-106 mg/dL Calcium Level 8.8 8.7-10.4 mg/dL Magnesium Level 1.5 L 1.6-2.6 mg/dL Total Bilirubin 0.7 0.2-1.0 mg/dL Aspartate Amino Transferase (AST) 12 L 13-40 U/L Alanine Aminotransferase (ALT) < 9 7-40 U/L Alkaline Phosphatase 82 46-116 U/L B-Type Natriuretic Peptide 206.27 0-100 pg/mL Total Protein 7.0 5.7-8.2 g/dL Albumin 3.7 3.2-4.8 g/dL Triglycerides Level 75 < 150 mg/dL Cholesterol Level 101 < 200 mg/dL LDL Cholesterol 59 < 100 mg/dL HDL Cholesterol 35 L 40-59 mg/dL Thyroid Stimulating Hormone (TSH) 0.66 0.55-4.78 uIU/mL Hemoglobin A1c 9.5 H <5.7 % A1C Lactic Acid Level 1.5 0.4-2.0 mmol/L Test 01/15/25 20:20 01/15/25 20:18 01/15/25 19:54 Range/Units Influenza Type A Antigen Negative Negative Influenza Type B Antigen Negative Negative SARS-CoV-2 Antigen (Rapid) Negative NEGATIVE Urine Color Colorless Yellow Urine Clarity Clear Clear Urine pH 5.5 5.0-9.0 Urine Specific [place] 1.009 1.001-1.035 Urine Protein Negative Negative Urine Ketones Trace Negative Urine Blood Negative Negative /uL Urine Nitrite Negative Negative Urine Bilirubin Negative Negative Urine Urobilinogen Normal Negative mg/dL Urine Leukocyte Esterase 1+ Negative /uL Urine RBC 1 0 - 4 /hpf Urine Microscopic WBC 4 0-5 /HPF Urine Squamous Epithelial Cells Few <5 /hpf Urine Bacteria Many H None Seen /hpf Urine Glucose Normal Normal mg/dL Troponin I High Sensitivity 3 L </=34 ng/L Microbiology Date/Time Source Procedure Growth Status 01/15/25 19:10 Blood Blood Culture - Preliminary NO GROWTH AFTER 24 HOURS OF INCUBATION. Resulted Assessment AFib with RVR, new onset (CHADS-VASc score 4, HAS-BLED 2). Hypertension. Type 2 diabetes with hyperglycemia. Hyperlipidemia. Sepsis. Plan/Recommendation I agree with your ongoing assessment and care of plan. Patient has been seen by Angela Bhagat NP on my behalf, her and I discussed the plan with the patient. Continue amiodarone drip per protocol; monitor rhythm, hemodynamics, and QTC interval. Continue Eliquis 5 mg b.i.d. for anticoagulation. Ordered transthoracic echocardiogram to assess cardiac structure and function. Check magnesium level and replete if. Check TSH-thyroid function as possible contributor to artery. Ordered lipid panel for risk stratification and management of hyperlipidemia. Optimize BP and glucose control with primary team. Continue sepsis management. Cardiology to follow closely; reassess rhythm vs. Long-term rate control strategy once patient is stabilizes. Additional plan as per the hospital course. Plan discussed with: Patient NYHA Physical activity limitations: NA Date of Service: Jan 17, 2025 Billing Provider: DAMION GAUTHIER MD Cardiology Common Codes: [id number] INP/OBS CARE (High) Cardiology Consultation Codes: [id number] CONSULT <60MIN DAMION GAUTHIER MD Jan 17, 2025 13:31
[2025-01-18] VITALS (8 sets, daily range): BP systolic 110–150; BP diastolic 53–80; PULSE 72–90; RESP 14–20; TEMP 96.3–99.5; O2SAT 94–99
--- NOTE | 2025-01-18 03:16 | DVHSR ---
APPROVED REPORT EXAM: Two-dimensional and M-mode echocardiogram with Doppler and color Doppler. Blood Pressure: 137/68 mmHg INDICATION New Onset A-fib RISK FACTORS Height: 5' 3", Weight: 159 DIMENSIONS LVDd4.7 (3.8-5.7cm)LA (2D)4.0 (1.9-4.0cm)Aortic Root3.3 (2.0-3.7cm) LVDs2.9 (2.5-4.0cm)LA (MM) (1.9-4.0cm)Aortic Cusp Exc1.7 (1.5-2.0cm) EF (%) 66.0 (55-70%)Rt. Atrium3.9 (1.9-4.0cm)Asc. Aorta cm IVSd1.0 (0.7-1.1cm)RV (D) (1.8-2.4cm) PWd0.8 (0.7-1.1cm) Mitral Valve MitralMitral Stenosis E wave1.40m/sMV Mean GR.mmHg A wave0.90m/sMV Peak GR.mmHg E/A ratio1.62D MVAcm2 Aortic Valve Aortic ValveAortic Stenosis V11.00m/Zuly Mean GR.6mmHg V21.60m/Zuly Peak GR.11mmHg LVOT Diameter2.1 (1.8-2.4cm)Doppler AVA2.16cm2 Pulmonic Valve V20.90m/s Tricuspid Valve TR Velocity2.70m/s [id number] Conclusion LV EF IS 65% NORMAL VALVES SLIGHTLY DILATED LA AND RA MILD PULMONARY HYPERTENSION RVSP IS 36 MM OF HG AND IS SLIGHTLY ELEVATED MILD MR NORMAL RV FUNCTION NO EFFUSION
[2025-01-18] MEDS: DOCUSATE SOD 100 MG CAP PO PRN (06:19)
[2025-01-18 07:24] LABS: Hematocrit 38.2 % (36.0-46.0); Hemoglobin 13.4 g/dL (12.2-16.2); Mean Corpuscular Hemoglobin 30.1 pg (28.0-32.0); Mean Corpuscular Volume 85.9 fL (80.0-100.0); Nucleated Red Blood Cells % 0.0 %
--- NOTE | 2025-01-18 11:11 | DVHPN2 ---
Reviewed: Care Plan, H&P, Labs, Medications, Previous Orders, Radiology Changes from previous H/P or p: No Changes Objective Vitals Vital Signs Date Time Temp Pulse Resp B/P (MAP) Pulse Ox O2 Delivery O2 Flow Rate FiO2 01/18/25 10:11 142/75 01/18/25 10:11 86 01/18/25 08:20 99.5 18 94 99.5 01/17/25 20:00 Nasal Cannula* 2 28 Intake/Output Intake and Output 01/18/25 06:59 Intake Total 1300 ml Balance 1300 ml Intake Oral 950 ml IV Total 350 ml # Voids 8 Medications Current Medications Medications Dose Ordered Sig/Jesse Route Start Time Stop Time Status Last Admin Dose Admin Ondansetron HCl 4 mg Q4HP PRN IV 01/15/25 23:15 Acetaminophen 650 mg Q6HP PRN PO 01/15/25 23:15 01/18/25 10:39 650 MG Vancomycin HCl 300 ml @ 200 mls/hr Q12H IV 01/16/25 01:15 UNV Metoprolol Succinate 50 mg DAILY PO 01/16/25 10:00 01/18/25 10:11 50 MG Lisinopril 10 mg DAILY PO 01/16/25 10:00 01/18/25 10:10 10 MG Dextrose 50 ml UD PRN IV 01/16/25 05:45 Pantoprazole Sodium 40 mg DAILY@0600 PO 01/16/25 06:00 01/18/25 06:12 40 MG Lactated Ringer's 1,000 ml @ 75 mls/hr [id number] IV 01/16/25 13:15 01/18/25 10:12 75 MLS/HR Amlodipine Besylate 10 mg DAILY PO 01/17/25 10:00 01/18/25 10:11 10 MG Insulin Glargine 20 units HS SC 01/16/25 22:00 01/18/25 00:10 20 UNITS Vancomycin HCl 0 ml @ 0 mls/hr UD IV 01/16/25 21:00 Cefepime HCl 50 ml @ 12.5 mls/hr Q8H IV 01/17/25 01:00 01/18/25 10:12 12.5 MLS/HR Vancomycin HCl 250 ml @ 200 mls/hr DAILY@2200 IV 01/16/25 22:00 01/17/25 21:46 200 MLS/HR Diagnostic Test (Pha) 1 strip Q6HR 01/17/25 00:00 01/18/25 06:09 1 STRIP Insulin Human Regular Q6HR SC 01/17/25 00:00 01/18/25 06:32 3 UNITS Apixaban 5 mg BID PO 01/17/25 10:00 01/18/25 10:11 5 MG Amiodarone HCl 200 mg Q12HR PO 01/17/25 22:00 01/18/25 10:12 200 MG Docusate Sodium 100 mg BIDPRN PRN PO 01/18/25 03:15 01/18/25 06:19 100 MG Laboratory Results Laboratory Tests 01/17/25 07:18 01/18/25 06:32 Urinalysis Test 01/15/25 20:18 Urine Color Colorless (Yellow) Urine Clarity Clear (Clear) Urine pH 5.5 (5.0-9.0) Urine Specific [place] 1.009 (1.001-1.035) Urine Protein Negative (Negative) Urine Ketones Trace (Negative) Urine Blood Negative /uL (Negative) Urine Nitrite Negative (Negative) Urine Bilirubin Negative (Negative) Urine Urobilinogen Normal mg/dL (Negative) Urine Leukocyte Esterase 1+ /uL (Negative) Urine RBC 1 /hpf (0 - 4) Urine Microscopic WBC 4 /HPF (0-5) Urine Squamous Epithelial Cells Few /hpf (<5) Urine Bacteria Many /hpf (None Seen) H Urine Glucose Normal mg/dL (Normal) Microbiology Microbiology Date/Time Source Procedure Growth Status 01/15/25 19:10 Blood Blood Culture - Preliminary NO GROWTH AFTER 48 HOURS OF INCUBATION. Resulted Labs and/or images reviewed: Labs reviewed by me, Image(s) reviewed by me Assessment/Plan Assessment/Plan Covering for resident physician Sepsis secondary to right wrist cellulitis Right wrist cellulitis cefepime vancomycin UTI Acute gastroenteritis Uncontrolled diabetes A1c 9.5: Counseling insulin sliding scale Uncontrolled hypertension Hyperlipidemia Hypokalemia replace potassium New onset AFib amiodarone tablets metoprolol, Eliquis Time Spent 45 minutes Plan discussed with: Patient My Orders Orders - KIMBERLEY BENJAMIN MD Procedure Category Date Status Time Cardiac DIET 01/17/25 Transmitted Diet-2gna,Lofat,Lochol Lunch Date of Service: Jan 18, 2025 Billing Provider: KIMBERLEY BENJAMIN MD Common Visit Codes: [id number] INP/OBS CARE(HIGH) KIMBERLEY BENJAMIN MD Jan 18, 2025 11:11
--- NOTE | 2025-01-18 12:01 | DVHPN2 ---
Subjective No cardiac events reported Remained sinus rhythm Denies chest pain or palpitation Reviewed: Care Plan, H&P, Labs, Medications, Previous Orders, Radiology Changes from previous H/P or p: No Changes Objective Vitals Vital Signs Date Time Temp Pulse Resp B/P (MAP) Pulse Ox O2 Delivery O2 Flow Rate FiO2 01/18/25 10:11 142/75 01/18/25 10:11 86 01/18/25 08:20 99.5 18 94 99.5 01/17/25 20:00 Nasal Cannula* 2 28 Intake/Output Intake and Output 01/18/25 07:00 Intake Total 1300 ml Balance 1300 ml Intake Oral 950 ml IV Total 350 ml # Voids 8 Medications Current Medications Medications Dose Ordered Sig/Jesse Route Start Time Stop Time Status Last Admin Dose Admin Ondansetron HCl 4 mg Q4HP PRN IV 01/15/25 23:15 Acetaminophen 650 mg Q6HP PRN PO 01/15/25 23:15 01/18/25 10:39 650 MG Vancomycin HCl 300 ml @ 200 mls/hr Q12H IV 01/16/25 01:15 UNV Metoprolol Succinate 50 mg DAILY PO 01/16/25 10:00 01/18/25 10:11 50 MG Lisinopril 10 mg DAILY PO 01/16/25 10:00 01/18/25 10:10 10 MG Dextrose 50 ml UD PRN IV 01/16/25 05:45 Pantoprazole Sodium 40 mg DAILY@0600 PO 01/16/25 06:00 01/18/25 06:12 40 MG Lactated Ringer's 1,000 ml @ 75 mls/hr [id number] IV 01/16/25 13:15 01/18/25 10:12 75 MLS/HR Amlodipine Besylate 10 mg DAILY PO 01/17/25 10:00 01/18/25 10:11 10 MG Insulin Glargine 20 units HS SC 01/16/25 22:00 01/18/25 00:10 20 UNITS Vancomycin HCl 0 ml @ 0 mls/hr UD IV 01/16/25 21:00 Cefepime HCl 50 ml @ 12.5 mls/hr Q8H IV 01/17/25 01:00 01/18/25 10:12 12.5 MLS/HR Vancomycin HCl 250 ml @ 200 mls/hr DAILY@2200 IV 01/16/25 22:00 01/17/25 21:46 200 MLS/HR Diagnostic Test (Pha) 1 strip Q6HR 01/17/25 00:00 01/18/25 06:09 1 STRIP Insulin Human Regular Q6HR SC 01/17/25 00:00 01/18/25 06:32 3 UNITS Apixaban 5 mg BID PO 01/17/25 10:00 01/18/25 10:11 5 MG Amiodarone HCl 200 mg Q12HR PO 01/17/25 22:00 01/18/25 10:12 200 MG Docusate Sodium 100 mg BIDPRN PRN PO 01/18/25 03:15 01/18/25 06:19 100 MG Laboratory Results Laboratory Tests 01/17/25 07:18 01/18/25 06:32 Urinalysis Test 01/15/25 20:18 Urine Color Colorless (Yellow) Urine Clarity Clear (Clear) Urine pH 5.5 (5.0-9.0) Urine Specific [place] 1.009 (1.001-1.035) Urine Protein Negative (Negative) Urine Ketones Trace (Negative) Urine Blood Negative /uL (Negative) Urine Nitrite Negative (Negative) Urine Bilirubin Negative (Negative) Urine Urobilinogen Normal mg/dL (Negative) Urine Leukocyte Esterase 1+ /uL (Negative) Urine RBC 1 /hpf (0 - 4) Urine Microscopic WBC 4 /HPF (0-5) Urine Squamous Epithelial Cells Few /hpf (<5) Urine Bacteria Many /hpf (None Seen) H Urine Glucose Normal mg/dL (Normal) Microbiology Microbiology Date/Time Source Procedure Growth Status 01/15/25 19:10 Blood Blood Culture - Preliminary NO GROWTH AFTER 48 HOURS OF INCUBATION. Resulted Assessment/Plan Assessment/Plan AFib with RVR, new onset (CHADS-VASc score 4, HAS-BLED 2), now in sinus rhythm Mild MR Mild pulmonary hypertension, RVSP 36mmHg Hypertension Type 2 diabetes with hyperglycemia Hyperlipidemia Sepsis Plan/Recommendation (Dr. Gauthier ): * Rate control with amiodarone 200 mg p.o. b.i.d. and BB * Continue with DOAC * Echocardiogram EF 65%, mild MR, mild pulmonary hypertension * Continue to monitor electrolytes and replete as needed * Continue to monitor on telemetry Follow-up with the Cardiology in outpatient setting Plan discussed with: Patient My Orders Orders - CHON TOUSSAINT Procedure Category Date Status Time Electrocardigram EKG 01/17/25 Logged 12:42 Amiodarone Tablet PHA 01/17/25 In Process (Cordarone Tablet) 22:00 Date of Service: Jan 18, 2025 Billing Provider: DAMION GAUTHIER MD Common Visit Codes: CONSULT ONLY Consultation Codes: [id number] CONSULT <45MIN CHON TOUSSAINT Jan 18, 2025 12:01
--- NOTE | 2025-01-18 23:46 | DVHPN2 ---
Consult Progress Note Subjective Other Systems: Patient was seen and evaluated in follow up. No cardiac events reported. Patient remains in sinus rhythm on the radiation monitor. Patient denies chest pain or palpitations.WBC 21.3, GLUC 242. Telemetry reviewed. Objective vital signs Vital Sign Date Time Temp Pulse Resp B/P (MAP) Pulse Ox O2 Delivery O2 Flow Rate FiO2 01/18/25 10:11 142/75 01/18/25 10:11 86 01/18/25 08:20 99.5 18 94 99.5 01/17/25 20:00 Nasal Cannula* 2 28 Total Intake and Output 01/17/25 01/17/25 01/18/25 15:00 23:00 07:00 Intake Total 600 ml 700 ml Balance 600 ml 700 ml medications Current Medications Medications Dose Ordered Sig/Jesse Route Start Time Stop Time Status Last Admin Dose Admin Ondansetron HCl 4 mg Q4HP PRN IV 01/15/25 23:15 Acetaminophen 650 mg Q6HP PRN PO 01/15/25 23:15 01/18/25 10:39 650 MG Vancomycin HCl 300 ml @ 200 mls/hr Q12H IV 01/16/25 01:15 UNV Metoprolol Succinate 50 mg DAILY PO 01/16/25 10:00 01/18/25 10:11 50 MG Lisinopril 10 mg DAILY PO 01/16/25 10:00 01/18/25 10:10 10 MG Dextrose 50 ml UD PRN IV 01/16/25 05:45 Pantoprazole Sodium 40 mg DAILY@0600 PO 01/16/25 06:00 01/18/25 06:12 40 MG Lactated Ringer's 1,000 ml @ 75 mls/hr [id number] IV 01/16/25 13:15 01/18/25 10:12 75 MLS/HR Amlodipine Besylate 10 mg DAILY PO 01/17/25 10:00 01/18/25 10:11 10 MG Insulin Glargine 20 units HS SC 01/16/25 22:00 01/18/25 00:10 20 UNITS Vancomycin HCl 0 ml @ 0 mls/hr UD IV 01/16/25 21:00 Cefepime HCl 50 ml @ 12.5 mls/hr Q8H IV 01/17/25 01:00 01/18/25 10:12 12.5 MLS/HR Vancomycin HCl 250 ml @ 200 mls/hr DAILY@2200 IV 01/16/25 22:00 01/17/25 21:46 200 MLS/HR Diagnostic Test (Pha) 1 strip Q6HR 01/17/25 00:00 01/18/25 12:00 1 STRIP Insulin Human Regular Q6HR SC 01/17/25 00:00 01/18/25 13:32 4 UNITS Apixaban 5 mg BID PO 01/17/25 10:00 01/18/25 10:11 5 MG Amiodarone HCl 200 mg Q12HR PO 01/17/25 22:00 01/18/25 10:12 200 MG Docusate Sodium 100 mg BIDPRN PRN PO 01/18/25 03:15 01/18/25 06:19 100 MG Examination: GENERAL:Normal, HEENT:Normal, NECK:Normal, LUNGS:Normal, CVS:Normal, ABDOMEN:Normal laboratory and microbiology Laboratory Tests 01/18/25 06:32 01/17/25 07:18 Test 01/17/25 07:18 Range/Units Serum Glucose 240 H 74-106 mg/dL Problem List/Assessment/Plan Problem List/Assessment/Plan Assessment AFib with RVR, new onset (CHADS-VASc score 4, HAS-BLED 2), now in sinus rhythm. Mild MR. Mild pulmonary hypertension, RVSP 36mmHg. Hypertension. Type 2 diabetes with hyperglycemia. Hyperlipidemia. Sepsis. Plan/Recommendation Continued all current supportive medical care. Patient has been seen by Angela Bhagat NP on my behalf, her and I discussed the plan with the patient. Rate control with amiodarone 200 mg p.o. b.i.d. and BB. Continue with DOAC. Echocardiogram EF 65%, mild MR, mild pulmonary hypertension. Continue to monitor electrolytes and replete as needed. Continue to monitor on telemetry. Follow-up with the Cardiology in outpatient setting. Additional plan as per the hospital course. Plan discussed with: Patient Date of Service: Jan 18, 2025 Billing Provider: DAMION GAUTHIER MD Cardiology Common Codes: [id number] HOSP CARE([facility] DAMION GAUTHIER MD Jan 18, 2025 13:43
[2025-01-19] VITALS (8 sets, daily range): BP systolic 118–147; BP diastolic 65–86; PULSE 83–94; RESP 16–18; TEMP 97.8–100.1; O2SAT 94–97
[2025-01-19 07:51] LABS: Hematocrit 38.0 % (36.0-46.0); Hemoglobin 12.9 g/dL (12.2-16.2); Mean Corpuscular Hemoglobin 29.1 pg (28.0-32.0); Mean Corpuscular Volume 85.9 fL (80.0-100.0); Nucleated Red Blood Cells % 0.1 %
[2025-01-19] MEDS ORDERED: VANCOMYCIN 1GM/200ML PM 200 ML IV SCH (11:00)
--- NOTE | 2025-01-19 16:47 | DVHPNRES ---
Progress Note Date Seen: Jan 19, 2025 Resident Creating Document: HUGO CAMARENA RESIDENT Medical Necessity Reason Pt with a Central, PICC or Fol: No Subjective Review of Systems Brief history on admission: Mile Tsang is a 74-year-old female with past medical history of diabetes, hypertension, hyperlipidemia, presented to the ER with chief complaint of pain in head, radiating to the neck, bilateral shoulders since the last 5 days. She also complained of pain and swelling in the right wrist following a fall. She complained of diarrhea since last 1 week, with no bloody stools. Diarrhea was associated with periumbilical pain. She complains of a flu-like illness 2 weeks back, has residual cough. The cough was initially with brown expectoration, now is dry. She also complained of shortness of breaths, which increases on lying down and she wakes up gasping for air. She consulted a creative writing professor, no cardiac cause reported. Reported no sick contact, recent travel. She has history of chronic tingling in the bilateral legs. Previous hospitalization: PMHx: Hypertension, hyperlipidemia, diabetes mellitus Social history: Reports no alcohol, smoking, recreational drug use. Lives in house. Home medication: Amlodipine, atorvastatin, metformin, metoprolol, lisinopril, gabapentin, triamcinolone ROS: Constitutional: Denies weight loss, fever and chills. HEENT: Ringing in bilateral ears Respiratory: Shortness of breaths and cough Cardiovascular: Denies chest discomfort or palpitations GI: Nausea, diarrhea, abdominal pain : Denies dysuria and urinary frequency. Musculoskeletal: Pain in neck, bilateral shoulders, pain and swelling in right wrist Skin: Denies rash and pruritus. Neurological: Denies dizziness, headache, vision or hearing problems 01/19/2025: She was examined at bedside today. She continues to complain of pain 01/11 today. She reports improvement in pain and swelling compared to yesterday. We will continue monitoring and managing Objective vital signs Vital Sign Date Time Temp Pulse Resp B/P (MAP) Pulse Ox O2 Delivery O2 Flow Rate FiO2 01/19/25 13:00 98.1 93 18 147/77 (100) 96 98.1 01/19/25 08:00 Room Air* 0 21 Total Intake and Output 01/18/25 01/18/25 01/19/25 15:00 23:00 07:00 Intake Total 50 ml 620 ml 770 ml Output Total 550 ml Balance 50 ml 70 ml 770 ml medications Current Medications Medications Dose Ordered Sig/Jesse Route Start Time Stop Time Status Last Admin Dose Admin Ondansetron HCl 4 mg Q4HP PRN IV 01/15/25 23:15 Acetaminophen 650 mg Q6HP PRN PO 01/15/25 23:15 01/19/25 05:35 650 MG Vancomycin HCl 300 ml @ 200 mls/hr Q12H IV 01/16/25 01:15 UNV Metoprolol Succinate 50 mg DAILY PO 01/16/25 10:00 01/19/25 09:36 50 MG Lisinopril 10 mg DAILY PO 01/16/25 10:00 01/19/25 09:37 10 MG Dextrose 50 ml UD PRN IV 01/16/25 05:45 Pantoprazole Sodium 40 mg DAILY@0600 PO 01/16/25 06:00 01/19/25 05:34 40 MG Lactated Ringer's 1,000 ml @ 75 mls/hr [id number] IV 01/16/25 13:15 01/19/25 09:40 75 MLS/HR Amlodipine Besylate 10 mg DAILY PO 01/17/25 10:00 01/19/25 09:37 10 MG Insulin Glargine 20 units HS SC 01/16/25 22:00 01/18/25 23:18 20 UNITS Vancomycin HCl 0 ml @ 0 mls/hr UD IV 01/16/25 21:00 Cefepime HCl 50 ml @ 12.5 mls/hr Q8H IV 01/17/25 01:00 01/19/25 09:36 12.5 MLS/HR Vancomycin HCl 250 ml @ 200 mls/hr DAILY@2200 IV 01/16/25 22:00 01/18/25 21:43 200 MLS/HR Diagnostic Test (Pha) 1 strip Q6HR 01/17/25 00:00 01/19/25 12:00 1 STRIP Insulin Human Regular Q6HR SC 01/17/25 00:00 01/19/25 13:17 6 UNITS Apixaban 5 mg BID PO 01/17/25 10:00 01/19/25 09:36 5 MG Amiodarone HCl 200 mg Q12HR PO 01/17/25 22:00 01/19/25 09:36 200 MG Docusate Sodium 100 mg BIDPRN PRN PO 01/18/25 03:15 01/18/25 06:19 100 MG Vancomycin HCl 200 ml @ 200 mls/hr Q12H IV 01/19/25 11:00 UNV Examination General: Patient alert and oriented in person, place and time. Patient following commands. HEENT: Unremarkable Respiratory/pulmonary: Clear lungs bilaterally, vesicular murmurs present in almost all lung caceres, no associated crackles or wheezes. Cardiovascular: Normal heart sounds S1 and S2 with no associated murmurs Abdomen: Mild Epigastric tenderness on palpation Extremities: Right wrist swelling, reduced Peripheral Pulses: 3+ Radial (R). 3+ Radial (L). 3+ Dorsalis pedis (R). 3+ Dorsalis pedis(L) Skin: No rashes or pruritus, there is no sacral edema present at this time. Neurological: Intact cranial nerves with no focal neurologic deficits laboratory and microbiology Laboratory Tests 01/19/25 06:44 01/17/25 07:18 Test 01/17/25 07:18 Range/Units Serum Glucose 240 H 74-106 mg/dL Microbiology Date/Time Source Procedure Growth Status 01/15/25 19:10 Blood Blood Culture - Preliminary NO GROWTH AFTER 72 HOURS OF INCUBATION. Resulted Problem List/Assessment/Plan Problem List/Assessment/Plan Sepsis due to below Right wrist cellulitis UTI, possible Gastroenteritis, likely infectious Lactic acidosis, resolved now Neutrophilic leukocytosis On Admission, tachycardia, tachypnea, fever CT shows hand cellulitis Urine, blood culture ordered Continue cefepime, vancomycin Pain management, Zofran Uncontrolled diabetes mellitus, A1c 9.5 Continue sliding scale insulin Uncontrolled hypertension Continue amlodipine, metoprolol, lisinopril Hyperlipidemia Continue atorvastatin Hypokalemia Replaced potassium Upper limb DVT, ruled out AFib with RVR, new onset (CHADS-VASc score 4, HAS-BLED 2), now in sinus rhythm. Mild MR Mild pulmonary hypertension, RVSP 36mmHg. Cardiology on board, recommended rate control with amiodarone 200 mg p.o. b.i.d. and BB, continue with DOAC. DIET: CC DVT PROPHYLAXIS: Lovenox GI PROPHYLAXIS: Protonix CODE STATUS: Goals of care discussed with patient at bedside for more than 35 minutes. Full code DISPOSITION: Med/surge Patient's status and plan discussed with the patient. Case discussed with Dr. Pryor. Plan discussed with: Patient Date of Service: Jan 19, 2025 Billing Provider: GABRIEL PRYOR MD Common Visit Codes: [id number] INP/OBS CARE(HIGH) HUGO CAMARENA RESIDENT Jan 19, 2025 16:47 GABRIEL PRYOR MD Jan 21, 2025 22:57
[2025-01-19 19:31] LABS: Chloride 103 mmol/L (98-107); Potassium 3.7 mmol/L (3.5-5.1); Sodium 136 mmol/L (136-145)
[2025-01-19 19:32] LABS: Anion Gap 9 (5-15); Calcium 9.5 mg/dL (8.7-10.4); Carbon Dioxide 24 mmol/L (20-31)
[2025-01-19 19:37] LABS: BUN/Creatinine Ratio 14.9 (10.0-20.0); Blood Urea Nitrogen 10 mg/dL (9-23); Glucose 159 mg/dL (74-106)
--- NOTE | 2025-01-19 23:53 | DVHPN2 ---
Progress Note - Dictate Date Seen: Jan 19, 2025 Medical Necessity Reason Pt with a Central, PICC or Fol: No Subjective Patient was seen and evaluated in follow up. Patient is complaining of generalized pain. She reports improvement in pain and swelling compared to yesterday. WBC 19.2. Telemetry reviewed. vital signs Vital Sign Date Time Temp Pulse Resp B/P (MAP) Pulse Ox O2 Delivery O2 Flow Rate FiO2 01/19/25 22:53 98.1 01/19/25 21:53 85 17 141/77 (98) 95 01/19/25 08:00 Room Air* 0 21 Total Intake and Output 01/18/25 01/18/25 01/19/25 15:00 23:00 07:00 Intake Total 50 ml 620 ml 770 ml Output Total 550 ml Balance 50 ml 70 ml 770 ml medications Current Medications Medications Dose Ordered Sig/Jesse Route Start Time Stop Time Status Last Admin Dose Admin Ondansetron HCl 4 mg Q4HP PRN IV 01/15/25 23:15 Acetaminophen 650 mg Q6HP PRN PO 01/15/25 23:15 01/19/25 22:53 650 MG Vancomycin HCl 300 ml @ 200 mls/hr Q12H IV 01/16/25 01:15 UNV Metoprolol Succinate 50 mg DAILY PO 01/16/25 10:00 01/19/25 09:36 50 MG Lisinopril 10 mg DAILY PO 01/16/25 10:00 01/19/25 09:37 10 MG Dextrose 50 ml UD PRN IV 01/16/25 05:45 Pantoprazole Sodium 40 mg DAILY@0600 PO 01/16/25 06:00 01/19/25 05:34 40 MG Lactated Ringer's 1,000 ml @ 75 mls/hr [id number] IV 01/16/25 13:15 01/19/25 09:40 75 MLS/HR Amlodipine Besylate 10 mg DAILY PO 01/17/25 10:00 01/19/25 09:37 10 MG Insulin Glargine 20 units HS SC 01/16/25 22:00 01/19/25 22:00 20 UNITS Vancomycin HCl 0 ml @ 0 mls/hr UD IV 01/16/25 21:00 Cefepime HCl 50 ml @ 12.5 mls/hr Q8H IV 01/17/25 01:00 01/19/25 17:57 12.5 MLS/HR Diagnostic Test (Pha) 1 strip Q6HR 01/17/25 00:00 01/19/25 18:28 1 STRIP Insulin Human Regular Q6HR SC 01/17/25 00:00 01/19/25 17:58 2 UNITS Apixaban 5 mg BID PO 01/17/25 10:00 01/19/25 22:52 5 MG Amiodarone HCl 200 mg Q12HR PO 01/17/25 22:00 01/19/25 22:52 200 MG Docusate Sodium 100 mg BIDPRN PRN PO 01/18/25 03:15 01/18/25 06:19 100 MG Vancomycin HCl 200 ml @ 200 mls/hr Q12H IV 01/19/25 11:00 UNV Vancomycin HCl 200 ml @ 200 mls/hr Q12H IV 01/19/25 18:00 01/19/25 18:50 200 MLS/HR objective GENERAL: Alert and oriented x 3. No acute distress. EYES: PERRL, EOMI. Anicteric. HENT: Moist mucous membranes. LUNGS: Clear to auscultation bilaterally. CARDIOVASCULAR: Irregular rate and rhythm. ABDOMEN: Soft, nontender and nondistended. EXTREMITIES: No edema. NEUROLOGIC: No focal neurological deficits. SKIN: Warm, dry. laboratory and microbiology Laboratory Tests 01/19/25 18:49 01/19/25 06:44 Test 01/19/25 18:49 Range/Units Serum Glucose 159 H 74-106 mg/dL Problem List AFib with RVR, new onset (CHADS-VASc score 4, HAS-BLED 2), now in sinus rhythm. Mild MR. Mild pulmonary hypertension, RVSP 36mmHg. Hypertension. Type 2 diabetes with hyperglycemia. Hyperlipidemia. Sepsis. Assessment/Plan Continued all current supportive medical care. Amiodarone. Amlodipine, Lisinopril. Eliquis. IV antibiotics as ordered. Metoprolol. GI prophylactics. Additional plan as per the hospital course. Plan discussed with: Patient DAMION GAUTHIER MD Jan 19, 2025 23:53
[2025-01-20] VITALS (8 sets, daily range): BP systolic 138–147; BP diastolic 56–93; PULSE 77–92; RESP 17–19; TEMP 98.1–99; O2SAT 92–98
[2025-01-20] MEDS: VANCOMYCIN HCL 1000 MG VL ONE (07:11)
[2025-01-20 07:12] LABS: Hematocrit 36.7 % (36.0-46.0); Hemoglobin 12.7 g/dL (12.2-16.2); Mean Corpuscular Hemoglobin 29.7 pg (28.0-32.0); Mean Corpuscular Volume 86.2 fL (80.0-100.0); Nucleated Red Blood Cells % 0.0 %
[2025-01-20 07:26] LABS: Alanine Aminotransferase 19 U/L (7-40); Albumin 3.4 g/dL (3.2-4.8); Alkaline Phosphatase 73 U/L (46-116); Anion Gap 9 (5-15); BUN/Creatinine Ratio 16.4 (10.0-20.0); Blood Urea Nitrogen 10 mg/dL (9-23); Calcium 9.2 mg/dL (8.7-10.4); Carbon Dioxide 26 mmol/L (20-31); Chloride 106 mmol/L (98-107); Magnesium 1.8 mg/dL (1.6-2.6); Potassium 3.6 mmol/L (3.5-5.1); Sodium 141 mmol/L (136-145); Total Protein 7.0 g/dL (5.7-8.2)
[2025-01-20 07:27] LABS: Bilirubin, Total 0.7 mg/dL (0.2-1.0)
[2025-01-20 07:29] LABS: Glucose 110 mg/dL (74-106)
[2025-01-20] MEDS: KETOROLAC TROMETH 30 MG/ML 1ML VIAL IV ONE (17:09)
[2025-01-20] MEDS: ACETAMINOPHEN 325 MG TAB PO SCH (18:00)
--- NOTE | 2025-01-20 19:37 | DVHPNRES ---
Progress Note Date Seen: Jan 20, 2025 Resident Creating Document: HUGO CAMARENA RESIDENT Medical Necessity Reason Pt with a Central, PICC or Fol: No Subjective Review of Systems Brief history on admission: Mile Tsagn is a 74-year-old female with past medical history of diabetes, hypertension, hyperlipidemia, presented to the ER with chief complaint of pain in head, radiating to the neck, bilateral shoulders since the last 5 days. She also complained of pain and swelling in the right wrist following a fall. She complained of diarrhea since last 1 week, with no bloody stools. Diarrhea was associated with periumbilical pain. She complains of a flu-like illness 2 weeks back, has residual cough. The cough was initially with brown expectoration, now is dry. She also complained of shortness of breaths, which increases on lying down and she wakes up gasping for air. She consulted a iron worker, no cardiac cause reported. Reported no sick contact, recent travel. She has history of chronic tingling in the bilateral legs. Previous hospitalization: PMHx: Hypertension, hyperlipidemia, diabetes mellitus Social history: Reports no alcohol, smoking, recreational drug use. Lives in house. Home medication: Amlodipine, atorvastatin, metformin, metoprolol, lisinopril, gabapentin, triamcinolone ROS: Constitutional: Denies weight loss, fever and chills. HEENT: Ringing in bilateral ears Respiratory: Shortness of breaths and cough Cardiovascular: Denies chest discomfort or palpitations GI: Nausea, diarrhea, abdominal pain : Denies dysuria and urinary frequency. Musculoskeletal: Pain in neck, bilateral shoulders, pain and swelling in right wrist Skin: Denies rash and pruritus. Neurological: Denies dizziness, headache, vision or hearing problems 01/19/2025: She was examined at bedside today. She continues to complain of pain 01/11 today. She reports improvement in pain and swelling compared to yesterday. We will continue monitoring and managing 01/20/2025: She was examined at bedside today. She reports reduced pain from yesterday, swelling is going down. We will continue IV antibiotic. Objective vital signs Vital Sign Date Time Temp Pulse Resp B/P (MAP) Pulse Ox O2 Delivery O2 Flow Rate FiO2 01/20/25 17:00 99.0 85 19 144/80 (101) 95 99.0 01/20/25 08:00 Room Air* 0 21 Total Intake and Output 01/19/25 01/19/25 01/20/25 15:00 23:00 07:00 Intake Total 920 ml 850 ml Output Total 800 ml Balance 120 ml 850 ml medications Current Medications Medications Dose Ordered Sig/Jesse Route Start Time Stop Time Status Last Admin Dose Admin Ondansetron HCl 4 mg Q4HP PRN IV 01/15/25 23:15 Vancomycin HCl 300 ml @ 200 mls/hr Q12H IV 01/16/25 01:15 UNV Metoprolol Succinate 50 mg DAILY PO 01/16/25 10:00 01/20/25 09:49 50 MG Lisinopril 10 mg DAILY PO 01/16/25 10:00 01/20/25 09:50 10 MG Dextrose 50 ml UD PRN IV 01/16/25 05:45 Pantoprazole Sodium 40 mg DAILY@0600 PO 01/16/25 06:00 01/20/25 06:02 40 MG Lactated Ringer's 1,000 ml @ 75 mls/hr [id number] IV 01/16/25 13:15 01/20/25 10:35 75 MLS/HR Amlodipine Besylate 10 mg DAILY PO 01/17/25 10:00 01/20/25 09:50 10 MG Insulin Glargine 20 units HS SC 01/16/25 22:00 01/19/25 22:00 20 UNITS Cefepime HCl 50 ml @ 12.5 mls/hr Q8H IV 01/17/25 01:00 01/20/25 18:07 12.5 MLS/HR Diagnostic Test (Pha) 1 strip Q6HR 01/17/25 00:00 01/20/25 18:07 1 STRIP Insulin Human Regular Q6HR SC 01/17/25 00:00 01/20/25 18:03 3 UNITS Apixaban 5 mg BID PO 01/17/25 10:00 01/20/25 09:51 5 MG Amiodarone HCl 200 mg Q12HR PO 01/17/25 22:00 01/20/25 09:50 200 MG Vancomycin HCl 200 ml @ 200 mls/hr Q12H IV 01/19/25 11:00 UNV Acetaminophen 650 mg Q6HR PO 01/20/25 15:15 01/20/25 18:07 650 MG Examination General: Patient alert and oriented in person, place and time. Patient following commands. HEENT: Unremarkable Respiratory/pulmonary: Clear lungs bilaterally, vesicular murmurs present in almost all lung caceres, no associated crackles or wheezes. Cardiovascular: Normal heart sounds S1 and S2 with no associated murmurs Abdomen: Soft abdomen Extremities: Right wrist swelling, progressively reducing from the demarcated area Peripheral Pulses: 3+ Radial (R). 3+ Radial (L). 3+ Dorsalis pedis (R). 3+ Dorsalis pedis(L) Skin: No rashes or pruritus, there is no sacral edema present at this time. Neurological: Intact cranial nerves with no focal neurologic deficits laboratory and microbiology Laboratory Tests 01/20/25 06:06 Test 01/20/25 06:06 Range/Units Serum Glucose 110 H 74-106 mg/dL Microbiology Date/Time Source Procedure Growth Status 01/15/25 19:10 Blood Blood Culture - Final NO GROWTH AFTER 5 DAYS OF INCUBATION. Complete Problem List/Assessment/Plan Problem List/Assessment/Plan Sepsis due to below Right wrist cellulitis UTI, possible Acute Gastroenteritis, likely infectious Lactic acidosis, resolved now Neutrophilic leukocytosis On Admission, tachycardia, tachypnea, fever CT shows hand cellulitis Urine, blood culture ordered Continue cefepime, vancomycin Pain management, Zofran Uncontrolled diabetes mellitus, A1c 9.5 Continue sliding scale insulin Uncontrolled hypertension Continue amlodipine, metoprolol, lisinopril Hyperlipidemia Continue atorvastatin Hypokalemia Replaced potassium Upper limb DVT, ruled out AFib with RVR, new onset (CHADS-VASc score 4, HAS-BLED 2), now in sinus rhythm. Mild MR Mild pulmonary hypertension, RVSP 36mmHg. Cardiology on board, recommended rate control with amiodarone 200 mg p.o. b.i.d. and BB, continue with DOAC. DIET: CC DVT PROPHYLAXIS: Lovenox GI PROPHYLAXIS: Protonix CODE STATUS: Goals of care discussed with patient at bedside for more than 25 minutes. Full code DISPOSITION: Med/surge Patient's status and plan discussed with the patient. Case discussed with Dr. Pryor. Plan discussed with: Patient Dietary Evaluation Review Comments: 1. Add CCHO-60 to Cardiac Diet 2. Encourage PO feeding to meeting 100% of her needs 3. Offer Glucerna BID PO it PO intake <75% Expected Outcomes/Goals: controlld blood sugar Date of Service: Jan 20, 2025 Billing Provider: GABRIEL PRYOR MD Common Visit Codes: [id number] INP/OBS CARE(HIGH) HUGO CAMARENA RESIDENT Jan 20, 2025 19:37 GABRIEL PRYOR MD Jan 21, 2025 23:18
--- NOTE | 2025-01-20 23:06 | DVHPN2 ---
Progress Note - Dictate Date Seen: Jan 20, 2025 Medical Necessity Reason Pt with a Central, PICC or Fol: No Subjective Patient was seen and evaluated in follow up. No overnight events. Patient stable on room air. She reports reduced pain from yesterday, swelling is going down. WBC 14. Telemetry reviewed. vital signs Vital Sign Date Time Temp Pulse Resp B/P (MAP) Pulse Ox O2 Delivery O2 Flow Rate FiO2 01/20/25 21:00 98.2 82 17 141/80 (100) 92 98.2 01/20/25 08:00 Room Air* 0 21 Total Intake and Output 01/19/25 01/19/25 01/20/25 15:00 23:00 07:00 Intake Total 920 ml 850 ml Output Total 800 ml Balance 120 ml 850 ml medications Current Medications Medications Dose Ordered Sig/Jesse Route Start Time Stop Time Status Last Admin Dose Admin Ondansetron HCl 4 mg Q4HP PRN IV 01/15/25 23:15 Vancomycin HCl 300 ml @ 200 mls/hr Q12H IV 01/16/25 01:15 UNV Metoprolol Succinate 50 mg DAILY PO 01/16/25 10:00 01/20/25 09:49 50 MG Lisinopril 10 mg DAILY PO 01/16/25 10:00 01/20/25 09:50 10 MG Dextrose 50 ml UD PRN IV 01/16/25 05:45 Pantoprazole Sodium 40 mg DAILY@0600 PO 01/16/25 06:00 01/20/25 06:02 40 MG Lactated Ringer's 1,000 ml @ 75 mls/hr [id number] IV 01/16/25 13:15 01/20/25 10:35 75 MLS/HR Amlodipine Besylate 10 mg DAILY PO 01/17/25 10:00 01/20/25 09:50 10 MG Insulin Glargine 20 units HS SC 01/16/25 22:00 01/19/25 22:00 20 UNITS Cefepime HCl 50 ml @ 12.5 mls/hr Q8H IV 01/17/25 01:00 01/20/25 18:07 12.5 MLS/HR Diagnostic Test (Pha) 1 strip Q6HR 01/17/25 00:00 01/20/25 18:07 1 STRIP Insulin Human Regular Q6HR SC 01/17/25 00:00 01/20/25 18:03 3 UNITS Apixaban 5 mg BID PO 01/17/25 10:00 01/20/25 21:45 5 MG Amiodarone HCl 200 mg Q12HR PO 01/17/25 22:00 01/20/25 21:46 200 MG Vancomycin HCl 200 ml @ 200 mls/hr Q12H IV 01/19/25 11:00 UNV Acetaminophen 650 mg Q6HR PO 01/20/25 15:15 01/20/25 18:07 650 MG objective GENERAL: Alert and oriented x 3. No acute distress. EYES: PERRL, EOMI. Anicteric. HENT: Moist mucous membranes. LUNGS: Clear to auscultation bilaterally. CARDIOVASCULAR: Irregular rate and rhythm. ABDOMEN: Soft, nontender and nondistended. EXTREMITIES: No edema. NEUROLOGIC: No focal neurological deficits. SKIN: Warm, dry. laboratory and microbiology Laboratory Tests 01/20/25 06:06 Test 01/20/25 06:06 Range/Units Serum Glucose 110 H 74-106 mg/dL Problem List AFib with RVR, new onset (CHADS-VASc score 4, HAS-BLED 2), now in sinus rhythm. Mild MR. Mild pulmonary hypertension, RVSP 36mmHg. Hypertension. Type 2 diabetes with hyperglycemia. Hyperlipidemia. Sepsis. Assessment/Plan Continued all current supportive medical care. Amiodarone. Amlodipine, Lisinopril. Eliquis. IV antibiotics as ordered. Metoprolol. GI prophylactics. Additional plan as per the hospital course. Dietary Evaluation Review Comments: 1. Add CCHO-60 to Cardiac Diet 2. Encourage PO feeding to meeting 100% of her needs 3. Offer Glucerna BID PO it PO intake <75% Expected Outcomes/Goals: controlld blood sugar Plan discussed with: Patient DAMION GAUTHIER MD Jan 20, 2025 23:06
[2025-01-21 01:00] VITALS: BP 141/78; PULSE 77; RESP 16; TEMP 97.9; O2SAT 97
[2025-01-21 05:00] VITALS: BP 144/83; PULSE 81; RESP 17; TEMP 97.9; O2SAT 97
[2025-01-21 08:00] VITALS: PULSE 80; RESP 18; O2SAT 97
[2025-01-21 08:59] VITALS: BP 138/75; PULSE 87; RESP 19; TEMP 98; O2SAT 93
[2025-01-21 10:00] VITALS: BP 138/75; PULSE 87
[2025-01-21] MEDS ORDERED: AUG875T PO (14:49)
--- NOTE | 2025-01-21 14:52 | DVHDSRES ---
Discharge Summary Date of Admission Resident Creating Document: HUGO CAMARENA RESIDENT Jan 15, 2025 at 23:05 Date of Discharge: Jan 21, 2025 Labs/Diagnostic Data: Laboratory Results Test 01/21/25 05:50 01/20/25 21:45 01/20/25 06:06 01/18/25 21:52 POC Glucose 104 mg/dl (70-106) Stool for White Cells None seen White Blood Count 14.1 10^3/uL (4.4-10.8) Red Blood Count 4.26 10^6/uL (4.0-5.20) Hemoglobin 12.7 g/dL (12.2-16.2) Hematocrit 36.7 % (36.0-46.0) Mean Corpuscular Volume 86.2 fL (80.0-100.0) Mean Corpuscular Hemoglobin 29.7 pg (28.0-32.0) Mean Corpuscular Hemoglobin Concent 34.5 g/dL (32.0-36.0) Red Cell Distribution Width 13.4 % (11.8-14.3) Platelet Count 391 10^3/uL (140-450) Mean Platelet Volume 7.5 fL (6.9-10.8) Neutrophils (%) (Auto) 73.5 % (37.0-80.0) Lymphocytes (%) (Auto) 13.4 % (10.0-50.0) Monocytes (%) (Auto) 10.3 % (0.0-12.0) Eosinophils (%) (Auto) 2.3 % (0.0-7.0) Basophils (%) (Auto) 0.5 % (0.0-2.0) Neutrophils # (Auto) 10.3 10 ^3/uL (1.6-8.6) Lymphocytes # (Auto) 1.9 10 ^3/uL (0.4-5.4) Monocytes # (Auto) 1.4 10 ^3/uL (0-1.3) Eosinophils # (Auto) 0.3 10 ^3/uL (0-0.8) Basophils # (Auto) 0.1 10 ^3/uL (0-0.2) Nucleated Red Blood Cells 0.0 % Sodium Level 141 mmol/L (136-145) Potassium Level 3.6 mmol/L (3.5-5.1) Chloride Level 106 mmol/L (98-107) Carbon Dioxide Level 26 mmol/L (20-31) Anion Gap 9 (5-15) Blood Urea Nitrogen 10 mg/dL (9-23) Creatinine 0.61 mg/dL (0.550-1.02) Glomerular Filtration Rate Calc 95 mL/min (>90) BUN/Creatinine Ratio 16.4 (10.0-20.0) Serum Glucose 110 mg/dL (74-106) Calcium Level 9.2 mg/dL (8.7-10.4) Magnesium Level 1.8 mg/dL (1.6-2.6) Total Bilirubin 0.7 mg/dL (0.2-1.0) Aspartate Amino Transferase (AST) 26 U/L (13-40) Alanine Aminotransferase (ALT) 19 U/L (7-40) Alkaline Phosphatase 73 U/L (46-116) Total Protein 7.0 g/dL (5.7-8.2) Albumin 3.4 g/dL (3.2-4.8) Vancomycin Level Trough 5.8 ug/mL (5-10) Test 01/17/25 07:18 01/16/25 05:52 01/15/25 21:10 01/15/25 20:20 B-Type Natriuretic Peptide 206.27 pg/mL (0-100) Triglycerides Level 75 mg/dL (< 150) Cholesterol Level 101 mg/dL (< 200) LDL Cholesterol 59 mg/dL (< 100) HDL Cholesterol 35 mg/dL (40-59) Thyroid Stimulating Hormone (TSH) 0.66 uIU/mL (0.55-4.78) Hemoglobin A1c 9.5 % A1C (<5.7) Lactic Acid Level 1.5 mmol/L (0.4-2.0) Influenza Type A Antigen Negative (Negative) Influenza Type B Antigen Negative (Negative) SARS-CoV-2 Antigen (Rapid) Negative (NEGATIVE) Test 01/15/25 20:18 01/15/25 19:54 Urine Color Colorless (Yellow) Urine Clarity Clear (Clear) Urine pH 5.5 (5.0-9.0) Urine Specific [place] 1.009 (1.001-1.035) Urine Protein Negative (Negative) Urine Ketones Trace (Negative) Urine Blood Negative /uL (Negative) Urine Nitrite Negative (Negative) Urine Bilirubin Negative (Negative) Urine Urobilinogen Normal mg/dL (Negative) Urine Leukocyte Esterase 1+ /uL (Negative) Urine RBC 1 /hpf (0 - 4) Urine Microscopic WBC 4 /HPF (0-5) Urine Squamous Epithelial Cells Few /hpf (<5) Urine Bacteria Many /hpf (None Seen) Urine Glucose Normal mg/dL (Normal) Troponin I High Sensitivity 3 ng/L (</=34) Other Laboratory Tests 01/20/25 06:06 Brief Hx & Hospital Course: Brief history on admission: Mile Tsang is a 74-year-old female with past medical history of diabetes, hypertension, hyperlipidemia, presented to the ER with multiple chief complaints. She complained of headache, radiating to the neck, bilateral shoulders since the last 5 days. She also complained of pain and swelling in the right wrist following a fall. She complained of diarrhea since last 1 week, with no bloody stools. Diarrhea was associated with periumbilical pain. She complains of a flu-like illness 2 weeks back, has residual cough. The cough was initially with brown expectoration, now is dry. She has history of chronic tingling sensation in the bilateral legs. Brief hospital course: She was admitted along the lines of sepsis due to right wrist cellulitis. Her initial labs revealed lactic acidosis, neutrophilic leukocytosis he has had tachycardia, tachypnea, fever on admission. She was started on IV cefepime and vancomycin, pain management, Zofran. Swelling on wrist continue to involve the hand before starting to resolve. Her swelling was demarcated for monitoring. She had an episode of atrial fibrillation while in the hospital, Cardiology was consulted, recommended rate control with amiodarone, beta blockers and continuation of DOAC. The pain and swelling has reduced, she is stable for discharge on oral Augmentin. Diagnosis during stay: Sepsis due Right wrist cellulitis Complicated UTI, possible Acute Gastroenteritis, likely infectious Uncontrolled diabetes mellitus, A1c 9.5 Continue sliding scale insulin Uncontrolled hypertension Hyperlipidemia Hypokalemia Upper limb DVT, ruled out AFib with RVR, new onset (CHADS-VASc score 4, HAS-BLED 2), Resolved Mild MR Mild pulmonary hypertension, RVSP 36mmHg Discharge plan: Continue Augmentin 875 mg for 7 days. Continue home medications Please follow with PCP in 1 week Please follow with [facility] [facility] outpatient Operations or Procedures RIGHT Upper Extremity Venous Duplex Clinical History: Swollen hand Comparison: US RIGHT UPPER EXT. on DOS: 01/16/25, XY R WRIST 3+ VIEW XRAY on DOS: 01/15/25, XY R HAND 3 VIEW XRAY on DOS: 01/06/23 Technique: Duplex Doppler evaluation of the venous system of the RIGHT lower neck and upper extremity including color Doppler and spectral/pulsed waveform analysis was performed. Findings: The internal jugular vein demonstrates appropriate compressibility and waveform variability. The subclavian vein is patent on color Doppler evaluation without intraluminal thrombus and demonstrates waveform variability. The visualized portion of the brachiocephalic vein is patent on color Doppler evaluation without intraluminal thrombus and demonstrates waveform variability. The axillary vein demonstrates appropriate compressibility and waveform variability. The brachial veins demonstrate appropriate compressibility and patency on Doppler evaluation. The basilic vein demonstrates appropriate compressibility and patency on Doppler evaluation. The cephalic vein demonstrates appropriate compressibility and patency on Doppler evaluation. Impression: 1. No venous thrombus identified in the RIGHT upper extremity vessels evaluated above. 2. If clinical concern/symptoms persist or worsen, short-interval follow-up study is suggested. ---- US RIGHT UPPER EXT. Date: 01/16/2025 07:52 PM Clinical History: Pain swelling Comparison: XY R WRIST 3+ VIEW XRAY on DOS: 01/15/25, XY R HAND 3 VIEW XRAY on DOS: 01/06/23 Technique: Targeted sonographic evaluation of the soft tissues of the right hand was obtained utilizing grayscale and color Doppler imaging. Findings: There is no evidence for drainable collection. There is no evidence for solid or cystic mass in the site. No vascular abnormalities identified at this site. IMPRESSION: 1. No definite sonographic abnormality is identified in the soft tissues of the [facility]. 2. Subcutaneous edema no drainable fluid collections. --- XY R WRIST 3+ VIEW XRAY on DOS: 01/15/25, XY R HAND 3 VIEW XRAY on DOS: 01/06/23 TECHNIQUE: CT of the right hand was performed without contrast. Volume transverse images were obtained and reconstructed in multiple planes using bone and soft tissue algorithms. Radiation Dose Information: CT Dose: CTDI volume is 7.8 mGy. Dose-length product is 187.7 mGy*cm FINDINGS: The alignment is normal. Diffuse degenerative changes. There is no fracture, dislocation or aggressive osseous lesion. There is no joint effusion. 2 adjacent punctate adjacent to the scaphoid. Diffuse soft-tissue edema and swelling. No fluid collection. No subcutaneous emphysema. IMPRESSION: Possible cellulitis. --- XY R HAND 3 VIEW XRAY on DOS: 01/06/23 FINDINGS: Bony demineralization. Alignment is maintained aside from ulnar negative variance. No acute fracture. Mild 1st CMC joint osteoarthritis. Tiny radiopaque densities project adjacent to the distal carpal row at the radial aspect. Soft tissue swelling about the distal right forearm and wrist. IMPRESSION: Bony demineralization. No definite acute fracture. Tiny radiopaque densities adjacent to the distal carpal row at the radial aspect which could reflect foreign bodies. Mild 1st CMC joint osteoarthritis. Soft tissue swelling about the distal right forearm and wrist. --- XY CHEST XRAY 1 VIEW CLINICAL HISTORY: Suspected Sepsis TECHNIQUE: Single AP view of the chest WID: COMPARISON: XY CHEST PORTABLE on DOS: 01/08/23 FINDINGS: Lines and tubes: None Chest: The heart size and pulmonary vasculature is within normal limits. No pleural effusion, pneumothorax, or consolidation. Linear bibasilar scarring or atelectasis. The osseous structures are grossly intact. Multilevel thoracic spondylosis. IMPRESSION: No acute cardiopulmonary abnormality. Condition at Discharge: Stable Final Diagnosis/Problems List Sepsis Likely due to Right wrist cellulitis Complicated UTI, possible Acute Gastroenteritis, likely infectious Uncontrolled diabetes mellitus, A1c 9.5 Uncontrolled hypertension Hyperlipidemia Hypokalemia Upper limb DVT, ruled out AFib with RVR, new onset (CHADS-VASc score 4, HAS-BLED 2), now in sinus rhythm Mild MR Mild pulmonary hypertension, RVSP 36mmHg Discharge Disposition: Home Discharge Instruct/Medications Diet: Consistent carbohydrate, Cardiac 2g Na,low cholest Activity: No Restrictions, As Tolerated Follow Up/Referral: Please follow-up with PCP in 1 week Medications: Continue Augmentin 875 mg twice daily for 5 days Continue home medications New Medications: Amoxicillin & Pot Clavulanate (Augmentin Tablet) 875 Mg Tb 875 MG PO BID for 7 Days, #14 TAB Scheduled Amlodipine Besylate (Amlodipine Besylate), 1 TAB PO DAILY, (Reported) Amoxicillin & Pot Clavulanate (Augmentin Tablet), 875 MG PO BID Cephalexin (Keflex Capsule), 1 CAP PO QID Metformin Hydrochloride (Metformin Hcl), 1 TAB PO BID, (Reported) Metoprolol Tartrate (Lopressor), 1 TAB PO BID, (Reported) Pioglitazone Hydrochloride (Pioglitazone Hcl), 1 TAB PO DAILY, (Reported) Miscellaneous Medications Atorvastatin Calcium (Atorvastatin Calcium), 1 TAB PO, (Reported) Discharge Statement: "Patient was advised to return to the ER or call 911 if any headaches, dizziness, shortness of breath, chest pain, abdominal pain, bleeding, fevers, or worsening of medical condition. Patient was counseled about treatment plan, medications, possible side effects, patientverbalized understanding. All questions were answered to the best of my ability. This discharge took greater then 30 minutes in planning, reviewing documentation, counseling the patient, and discussing with other team members." ASSESSMENT ASSESSMENT Assessment Sepsis Likely due to Right wrist cellulitis Complicated UTI, possible Acute Gastroenteritis, likely infectious Uncontrolled diabetes mellitus, A1c 9.5 Uncontrolled hypertension Hyperlipidemia Hypokalemia Upper limb DVT, ruled out AFib with RVR, new onset (CHADS-VASc score 4, HAS-BLED 2), now in sinus rhythm Mild MR Mild pulmonary hypertension, RVSP 36mmHg Date of Service: Jan 21, 2025 Billing Provider: GABRIEL FARRAR MD Common Visit Codes: 26040-OVE/OBS DISCH DAY >30min HUGO CAMARENA RESIDENT Jan 21, 2025 14:52 GABRIEL FARRAR MD Jan 21, 2025 22:25
--- NOTE | 2025-01-21 23:07 | DVHPN2 ---
Progress Note - Dictate Date Seen: Jan 21, 2025 Medical Necessity Reason Pt with a Central, PICC or Fol: No Subjective Patient was seen and evaluated in follow up. Patient has no new complaints at this time. Patient denies any cardiac symptoms. Patient is cardiac stable for discharge. Telemetry reviewed. vital signs Vital Sign Date Time Temp Pulse Resp B/P (MAP) Pulse Ox O2 Delivery O2 Flow Rate FiO2 01/21/25 10:00 87 01/21/25 09:00 138/75 01/21/25 08:59 98.0 19 93 98.0 01/21/25 08:00 Room Air* 0 21 Total Intake and Output 01/20/25 01/20/25 01/21/25 15:00 23:00 07:00 Intake Total 200 ml 750 ml 350 ml Balance 200 ml 750 ml 350 ml medications Current Medications Medications Dose Ordered Sig/Jesse Route Start Time Stop Time Status Last Admin Dose Admin Vancomycin HCl 300 ml @ 200 mls/hr Q12H IV 01/16/25 01:15 UNV Vancomycin HCl 200 ml @ 200 mls/hr Q12H IV 01/19/25 11:00 UNV objective GENERAL: Alert and oriented x 3. No acute distress. EYES: PERRL, EOMI. Anicteric. HENT: Moist mucous membranes. LUNGS: Clear to auscultation bilaterally. CARDIOVASCULAR: Irregular rate and rhythm. ABDOMEN: Soft, nontender and nondistended. EXTREMITIES: No edema. NEUROLOGIC: No focal neurological deficits. SKIN: Warm, dry. laboratory and microbiology Laboratory Tests 01/20/25 06:06 Test 01/20/25 06:06 Range/Units Serum Glucose 110 H 74-106 mg/dL Problem List AFib with RVR, new onset (CHADS-VASc score 4, HAS-BLED 2), now in sinus rhythm. Mild MR. Mild pulmonary hypertension, RVSP 36mmHg. Hypertension. Type 2 diabetes with hyperglycemia. Hyperlipidemia. Sepsis. Assessment/Plan Continued all current supportive medical care. Amiodarone. Amlodipine, Lisinopril. Eliquis. IV antibiotics as ordered. Metoprolol. GI prophylactics. Additional plan as per the hospital course. Dietary Evaluation Review Comments: 1. Add CCHO-60 to Cardiac Diet 2. Encourage PO feeding to meeting 100% of her needs 3. Offer Glucerna BID PO it PO intake <75% Expected Outcomes/Goals: controlld blood sugar Plan discussed with: Patient DAMION GAUTHIER MD Jan 21, 2025 14:46
== END 2025-01-21 11:10 | disposition home or self-care (01) | DRG 871 ==
LOC: ER 18:17 → OVERFLOW 23:05 → TELE-EAST 01-16 01:52
PROVIDERS: ADMIT Student in an Organized Health Care Education/Training Program; ATTEND Student in an Organized Health Care Education/Training Program
DX: A41.9 Sepsis, unspecified organism (principal); J96.01 Acute respiratory failure with hypoxia; L03.113 Cellulitis of right upper limb; N39.0 Urinary tract infection, site not specified; E87.20 Acidosis, unspecified; A09 Infectious gastroenteritis and colitis, unspecified; E87.6 Hypokalemia; Z20.822 Contact with and (suspected) exposure to COVID-19; I48.91 Unspecified atrial fibrillation; E11.65 Type 2 diabetes mellitus with hyperglycemia; I10 Essential (primary) hypertension; I27.20 Pulmonary hypertension, unspecified; E78.00 Pure hypercholesterolemia, unspecified; Z82.49 Family history of ischemic heart disease and other diseases of the circulatory system; Z79.84 Long term (current) use of oral hypoglycemic drugs; Z79.2 Long term (current) use of antibiotics; Z79.899 Other long term (current) drug therapy; Z79.01 Long term (current) use of anticoagulants
CPT/HCPCS: 36415; 71045; 73110; 73200; 76881; 80048; 80053; 80061; 80202; 81001; 82565; 82962; 83036; 83605; 83735; 83880; 84132; 84443; 84484; 85025; 85048; 87040; 87426; 87804; 93005; 93306; 93971; 96361; 96365; 96366; G0378; J1815; J1885